=== PATIENT | female | born 1945 | race Caucasian/White ===

== ENCOUNTER 2017-01-17 23:39 | Inpatient (IN) | payer MEDICARE, OTHER ==
[~2017-01-17] VITALS: Ht 160 cm; Wt 75.3 kg
[~2017-01-17 23:39] MED LIST: ACET500C5 PO; AMLO-147 PO; CALC0.2511 PO; CNC30T PO; LORA10TA3 PO; LOSA50TA2 PO; MEVA40 PO; MIRT7.5T8 PO; NEPH PO; NOVO7030 SC; PANT40TA4 PO
[2017-01-18] MEDS ORDERED: SOD CHLORIDE 0.9% 1,000 ML IV STA (01:45)
[2017-01-18] MEDS ORDERED: ONDANSETRON 4 MG INJ IV STA (01:45)
[2017-01-18] MEDS ORDERED: morphine 4 MG/ML VIAL IV STA ×2 (01:45→05:00)
[2017-01-18 02:18] LABS: ADD SCAN DIFF NO
[2017-01-18 02:25] LABS: ABNORMAL IP MESSAGE 1; BASOPHILS % 0.2 % (0.0-2.0); HEMATOCRIT 35.6 % (37.0-47.0); HEMOGLOBIN 11.5 g/dl (12.0-16.0); LYMPHOCYTES # 1.5 10^3/ul (0.8-2.9); MEAN CORPUSCULAR HEMOGLOBIN 30.8 pg (29.0-33.0); MEAN CORPUSCULAR HGB CONC 32.3 g/dl (32.0-37.0); MEAN CORPUSCULAR VOLUME 95.4 fl (82.0-101.0); MEAN PLATELET VOLUME 13.7 fl (7.4-10.4); MONOCYTE # 0.9 10^3/ul (0.3-0.9); MONOCYTES % 5.3 % (0.0-11.0); PLATELET COUNT 199 10^3/UL (140-415); RED BLOOD COUNT 3.73 10^6/ul (4.20-5.40); RED CELL DISTRIBUTION WIDTH 16.2 % (11.5-14.5); WHITE BLOOD COUNT 16.5 10^3/ul (4.8-10.8)
[2017-01-18 02:33] LABS: ADD UMIC YES; UR ASCORBIC ACID NEGATIVE (NEGATIVE); UR BILIRUBIN (Dip) NEGATIVE (NEGATIVE); UR BLOOD (Dip) NEGATIVE (NEGATIVE); UR CLARITY SLIGHTLY CLOUDY (CLEAR); UR COLOR YELLOW (YELLOW); UR GLUCOSE (Dip) 3+ mg/dL (NEGATIVE); UR KETONES (Dip) NEGATIVE (NEGATIVE); UR LEUKOCYTE ESTERASE (Dip) NEGATIVE Leu/ul (NEGATIVE); UR NITRITE (Dip) NEGATIVE (NEGATIVE); UR RBC 0 /HPF (0-5); UR SPECIFIC GRAVITY (Dip) 1.011 (1.003-1.030); UR SQUAMOUS EPITHELIAL CELL FEW /HPF (FEW); UR TOTAL PROTEIN (Dip) 3+ mg/dl (NEGATIVE); UR UROBILINOGEN (Dip) NEGATIVE (NEGATIVE)
[2017-01-18 02:41] LABS: ALBUMIN 5.1 g/dl (3.3-4.9); ALBUMIN/GLOBULIN RATIO 1.45; BILIRUBIN,INDIRECT 0.3 mg/dl (0-1.1); BILIRUBIN,TOTAL 0.3 mg/dl (0.2-1.3); CALCIUM 10.1 mg/dl (8.4-10.2); CREATININE 5.59 mg/dl (0.44-1.00); POTASSIUM 4.5 mmol/L (3.5-5.1); TOTAL PROTEIN 8.6 g/dl (6.1-8.1)
--- NOTE | 2017-01-18 03:32 | RADRPT ---
PROCEDURE: CT abdomen and pelvis without intravenous contrast. CLINICAL INDICATION: Pain. TECHNIQUE: CT of the abdomen/pelvis was performed utilizing axial images with reconstructions in s agittal and coronal planes. The administered radiation dose is CTDI 17 mGy, DLP 1027 mGy-cm. COMPARISON: No pertinent prior examinations were submitted for comparison. FINDINGS: Visualized Chest: There is moderate to marked cardiomegaly. There is trace pericardial effusion. C oronary artery calcifications are noted. There is mild atelectasis in the lung bases. Abdomen: The liver, spleen, pancreas, and adrenal glands are unremarkable. A stone is noted within the gall bladder. There is marked distension of the gallbladder with some gallbladder wall thickening. The kidneys are without hydronephrosis. No definite urinary calculi are seen. There is no evidence of bowel obstruction. The appendix is normal. No intra-abdominal free air is seen. There is no evidence of intra-abdominal adenopathy or free fluid. Vascular calcifications are noted within the aorta and its branches. Pelvis: There is no evidence of pelvic adenopathy. The uterus and ovaries are without enlargement. The uri nary bladder is unremarkable. There is no pelvic free fluid. Osseous structures: Unremarkable. IMPRESSION: Cholelithiasis with gallbladder distension and wall thickening. Findings are suggestive of cholecys titis. RPTAT: HIKT .Damion Liu MD, Date Time Electronically viewed and signed by .Damion Liu MD, on 01/18/2017 03:31 .T/
--- NOTE | 2017-01-18 03:56 | ERD ---
ER Documentation Chief Complaint Date/Time DATE: 01/18/17 TIME: 03:51 Chief Complaint low back pain for 2 days HPI This is a 71-year-old female that presents to the ER with a past medical history of diabetes, hypertension for abdominal pain and lower back pain. Patient states that 2 days ago she began to have lower back pain which radiates into her abdomen. Abdomen is severe and constant and is associated with nausea and nonbilious nonbloody vomiting. Patient denies any diarrhea. Patient also states that abdominal pain radiates down to her left leg. She denies any left leg numbness or tingling. Patient states that yesterday she had a fever, however here in the ER and she does not present with a fever. She denies any urinary frequency or dysuria. Patient is a dialysis patient ROS 12 point review of systems was done, all negative except per HPI. Medications Home Meds Active Scripts Cinacalcet* (Sensipar*) 30 Mg Tab, 30 MG PO DAILY for 30 Days, TAB Prov:PRISCILA HIDALGO NP 03/30/16 Calcitriol* (Calcitriol*) 0.25 Mcg Capsule, 0.25 MCG PO DAILY for 30 Days, CAP Prov:PRISCILA HIDALGO NP 03/30/16 Losartan Potassium* (Cozaar*) 50 Mg Tablet, 50 MG PO BID for 30 Days, TAB Prov:PRISCILA HIDALGO NP 03/30/16 Pantoprazole* (Pantoprazole*) 40 Mg Tablet.dr, 40 MG PO DAILY@06 for 30 Days Prov:PRISCILA HIDALGO NP 03/30/16 Multivit/Ca Carb/B Cmplx/Fa* (Jennifer-Black*) 1 Tab Tab, 1 TAB PO DAILY for 30 Days , TAB Prov:PRISCILA HIDALGO NP 03/30/16 Reported Medications Insulin Isophan/Regular (Humulin 70/30) 100 Units/Ml Susp, 1 UNIT SC HS, EA 03/19/16 Insulin Isophan/Regular (Humulin 70/30) 100 Units/Ml Susp, 1 UNIT SC AC BREAKFAST, EA 03/19/16 Acetaminophen* (Tylophen*) 500 Mg Capsule, 500 MG PO Q6H Y for MODERATE PAIN LEVEL 4-6, TAB 03/19/16 Lovastatin (Lovastatin) 40 Mg Tablet, 40 MG PO HS, TAB 03/19/16 Amlodipine Besylate* (Amlodipine Besylate*) 10 Mg Tablet, 10 MG PO DAILY, #30 TAB 03/19/16 Mirtazapine* (Mirtazapine*) 7.5 Mg Tablet, 7.5 MG PO HS, TAB 03/19/16 Loratadine* (Loratadine*) 10 Mg Tablet, 10 MG PO DAILY, #30 TAB 03/19/16 Allergies Allergies: Coded Allergies: No Known Drug Allergies (Unverified Allergy, Unknown, 03/19/16) PMhx/Soc History of Surgery: Yes (RIGHT FOOT) Anesthesia Reaction: No Hx Neurological Disorder: No Hx Respiratory Disorders: No Hx Cardiac Disorders: Yes (CARDIOMEGALY) Hx Psychiatric Problems: No Hx Miscellaneous Medical Probl: No Hx Alcohol Use: No Hx Substance Use: No Hx Tobacco Use: No Smoking Status: Never smoker Physical Exam Vitals Vital Signs Date Time Temp Pulse Resp B/P Pulse Ox O2 Delivery O2 Flow Rate FiO2 01/17/17 23:48 99.4 87 18 154/70 95 Physical Exam GENERAL: Elderly female in significant distress secondary to pain. HEENT: Atraumatic. Conjunctivae are pink. Pupils equal, round, and reactive to light. Extraocular muscles are grossly intact. Bilateral tympanic membranes are clear with no evidence of erythema, effusion or dulling of the light reflex. The oropharynx is clear with no erythema or exudates. CHEST: Clear to auscultation bilaterally. There are no rales, wheezes or rhonchi. HEART: Regular rate and rhythm. No murmurs, clicks, rubs or gallops. ABDOMEN: Tender to palpation throughout entire abdomen. Good bowel sounds. No rebound or guarding. No gross peritonitis. No gross organomegaly or masses. No Harry sign or McBurney point tenderness. BACK: No midline or flank tenderness. EXTREMITIES: Equal pulses bilaterally. There is no peripheral clubbing, cyanosis or edema. No focal swelling or erythema. Full range of motion. Grossly neurovascularly intact. NEURO: Alert and oriented. SKIN: The skin is warm and dry. Result Diagram: 01/18/17 0200 01/18/17 0200 Results 24 hrs Laboratory Tests Test 01/18/17 02:00 White Blood Count 16.510^3/ul Red Blood Count 3.7310^6/ul Hemoglobin 11.5g/dl Hematocrit 35.6% Mean Corpuscular Volume 95.4fl Mean Corpuscular Hemoglobin 30.8pg Mean Corpuscular Hemoglobin Concent 32.3g/dl Red Cell Distribution Width 16.2% Platelet Count 37435^3/UL Mean Platelet Volume 13.7fl Neutrophils % 85.0% Lymphocytes % 9.0% Monocytes % 5.3% Eosinophils % 0.0% Basophils % 0.2% Nucleated Red Blood Cells % 0.0/100WBC Neutrophils # 14.010^3/ul Lymphocytes # 1.510^3/ul Monocytes # 0.910^3/ul Eosinophils # 0.010^3/ul Basophils # 0.010^3/ul Nucleated Red Blood Cells # 0.010^3/ul Urine Color YELLOW Urine Clarity SLIGHTLY CLOUDY Urine pH 7.0 Urine Specific [place] 1.011 Urine Ketones NEGATIVEmg/dL Urine Nitrite NEGATIVEmg/dL Urine Bilirubin NEGATIVEmg/dL Urine Urobilinogen NEGATIVEmg/dL Urine Leukocyte Esterase NEGATIVELeu/ul Urine Microscopic RBC 0/HPF Urine Microscopic WBC 2/HPF Urine Squamous Epithelial Cells FEW/HPF Urine Hemoglobin NEGATIVEmg/dL Urine Glucose 3+mg/dL Urine Total Protein 3+mg/dl Sodium Level 135mmol/L Potassium Level 4.5mmol/L Chloride Level 91mmol/L Carbon Dioxide Level 26mmol/L Anion Gap 23 Blood Urea Nitrogen 41mg/dl Creatinine 5.59mg/dl Glucose Level 237mg/dl Calcium Level 10.1mg/dl Total Bilirubin 0.3mg/dl Direct Bilirubin 0.00mg/dl Indirect Bilirubin 0.3mg/dl Aspartate Amino Transf (AST/SGOT) 19IU/L Alanine Aminotransferase (ALT/SGPT) 27IU/L Alkaline Phosphatase 92IU/L Total Protein 8.6g/dl Albumin 5.1g/dl Globulin 3.50g/dl Albumin/Globulin Ratio 1.45 Lipase 42U/L Current Medications Medications (Trade) Dose Ordered Sig/Holger Route PRN Reason Start Time Stop Time Status Last Admin Dose Admin Sodium Chloride (NS) 1,000 ml @ 1,000 mls/hr Q1H STAT IV 01/18/17 01:45 01/18/17 02:44 DC 01/18/17 02:08 Morphine Sulfate (morphine) 4 mg ONCE STAT IV 01/18/17 01:45 01/18/17 01:47 DC 01/18/17 02:09 Ondansetron HCl (Zofran Inj) 4 mg ONCE STAT IV 01/18/17 01:45 01/18/17 01:47 DC 01/18/17 02:08 Procedures/MDM Differential Diagnosis: GERD, gastritis, peptic ulcer disease, pancreatitis, cholecystitis, choledocholithiasis, biliary colic, cholangitis, [id number]-Queyhv , ACS/MO, Pnuemonia, intra-abdominal abscess, diverticulitis, mesenteric ischemia, obstruction, appendicitis. This is a 71-year-old female presents to the ER with abdominal pain and back pain. Patient was found to have acute cholecystitis. Patient will be sent to ER 1 for further management care and admission. Departure Diagnosis: Primary Impression: Cholecystitis Condition: JESSICA Ocampo Jan 18, 2017 03:56
[2017-01-18] MEDS ORDERED: PIPER-TAZO 3.375 GM IV (PMX) 100 ML IVPB ONE (05:30)
[2017-01-18] MEDS: SOD CHLORIDE 0.9% 1,000 ML IV SCH ×2 (06:51→10:36)
[2017-01-18] MEDS ORDERED: DEXTROSE 50% 50 ML SYRINGE IV PRN ×2 (07:00)
[2017-01-18] MEDS ORDERED: NACL 0.9% 3 ML SYG IV SCH (07:00)
[2017-01-18] MEDS ORDERED: GLUCOSE GEL 15 GRAM TUBE PO PRN ×2 (07:00)
[2017-01-18] MEDS ORDERED: GLUCAGON 1 MG INJ IM PRN (07:00)
[2017-01-18] MEDS ORDERED: GLUCOSE GEL 15 GRAM TUBE BUCCAL PRN (07:00)
[2017-01-18] MEDS: ONDANSETRON 4 MG INJ IV PRN ×2 (08:19→11:34)
[2017-01-18] MEDS: AMLODIPINE 10 MG TAB PO SCH (08:41)
[2017-01-18] MEDS: LORATADINE 10 MG TAB PO SCH (08:41)
[2017-01-18] MEDS: CINACALCET 30 MG TAB PO SCH (08:42)
[2017-01-18] MEDS: CALCITRIOL 0.25 MCG CAP PO SCH (08:42)
[2017-01-18] MEDS: INSULIN ASPART [NOVOLOG] 3 ML PEN SC SCH ×4 (08:54→21:01)
[2017-01-18] MEDS: HYDROmorphONE 1 MG/ML SYG IV PRN (09:27)
[2017-01-18 10:07] VITALS: Ht 160 cm; Wt 75.3 kg
[2017-01-18 10:08] VITALS: BP 184/84; PULSE 99; RESP 16
[2017-01-18 10:27] VITALS: BP 159/77; RESP 18
[2017-01-18 14:00] VITALS: BP 131/82; RESP 16
[2017-01-18 15:10] LABS: INR 1.12; PROTIME 14.4 Sec (12.2-14.2); PT RATIO 1.1
[2017-01-18 15:11] LABS: PARTIAL THROMBOPLASTIN TIME 38.9 Sec (25.0-35.0)
--- NOTE | 2017-01-18 16:38 | CONS ---
Date/Time of Note Date/Time of Note DATE: 01/18/17 TIME: 16:34 Assessment/Plan Assessment/Plan Chief Complaint/Hosp Course - ESRD on hemodialysis TTS from [facility] [place] - Acute Cholecystitis - Anemia - HTN PLAN: Dialysis in AM IV Abx Pain control Surgical & GI evaluation Problems: Consultation Date/Type/Reason Admit Date/Time Jan 18, 2017 at 04:59 Date of Consultation: Jan 18, 2017 Type of Consultation: NEPHROLOGY Reason for Consultation - ESRD on hemodialysis Hx of Present Illness This is a 71-year-old female that presents to the ER with a past medical history of diabetes, hypertension for abdominal pain and lower back pain. Patient states that 2 days ago she began to have lower back pain which radiates into her abdomen. On hemod[place] [facility] [place] Constitutional: poor po Eyes: no complaints ENT: no complaints Respiratory: no complaints Cardiovascular: no complaints Gastrointestinal: decreased appetite, nausea, pain Genitourinary: no complaints Musculoskeletal: no complaints Past Medical History Medical History: GERD, hypertension, renal disease Past Surgical History Past Surgical Hx: no surgical history Family History Significant Family History: no pertinent family hx Social History Alcohol Use: none Smoking Status: Former smoker Drug Use: none Exam/Review of Systems Vital Signs Vitals Vital Signs Date Time Temp Pulse Resp B/P Pulse Ox O2 Delivery O2 Flow Rate FiO2 01/18/17 14:00 98.5 101 16 131/82 93 01/18/17 10:08 Room Air Exam Constitutional: alert, oriented Psych: no complaints Head: normocephalic Eyes: nl conjunctiva Respiratory: crackles/rales Cardiovascular: edema, regular rate and rhythm, systolic murmur Gastrointestinal: distended, soft, tender Results Result Diagram: 01/18/17 0200 01/18/17 0200 Results 24 hrs Laboratory Tests Test 01/18/17 02:00 01/18/17 08:45 01/18/17 12:03 01/18/17 13:45 White Blood Count 16.5 #H Red Blood Count 3.73 #L Hemoglobin 11.5 #L Hematocrit 35.6 #L Mean Corpuscular Volume 95.4 Mean Corpuscular Hemoglobin 30.8 Mean Corpuscular Hemoglobin Concent 32.3 Red Cell Distribution Width 16.2 H Platelet Count 199 Mean Platelet Volume 13.7 H Neutrophils % 85.0 H Lymphocytes % 9.0 L Monocytes % 5.3 Eosinophils % 0.0 Basophils % 0.2 Nucleated Red Blood Cells % 0.0 Neutrophils # 14.0 H Lymphocytes # 1.5 Monocytes # 0.9 Eosinophils # 0.0 Basophils # 0.0 Nucleated Red Blood Cells # 0.0 Urine Color YELLOW Urine Clarity SLIGHTLY CLOUDY A Urine pH 7.0 Urine Specific [place] 1.011 Urine Ketones NEGATIVE Urine Nitrite NEGATIVE Urine Bilirubin NEGATIVE Urine Urobilinogen NEGATIVE Urine Leukocyte Esterase NEGATIVE Urine Microscopic RBC 0 Urine Microscopic WBC 2 Urine Squamous Epithelial Cells FEW Urine Hemoglobin NEGATIVE Urine Glucose 3+ H Urine Total Protein 3+ H Sodium Level 135 Potassium Level 4.5 Chloride Level 91 L Carbon Dioxide Level 26 Anion Gap 23 H Blood Urea Nitrogen 41 H Creatinine 5.59 H Glucose Level 237 H Calcium Level 10.1 Total Bilirubin 0.3 Direct Bilirubin 0.00 Indirect Bilirubin 0.3 Aspartate Amino Transf (AST/SGOT) 19 Alanine Aminotransferase (ALT/SGPT) 27 Alkaline Phosphatase 92 Total Protein 8.6 H Albumin 5.1 H Globulin 3.50 H Albumin/Globulin Ratio 1.45 Lipase 42 Bedside Glucose 222 H 202 Prothrombin Time 14.4 H Prothrombin Time Ratio 1.1 INR International Normalized Ratio 1.12 Activated Partial Thromboplast Time 38.9 H Troponin I < 0.012 Medications Medications Current Medications Sodium Chloride (NS) 1,000 ml @ 50 mls/hr Q20H IV Last administered on 10:36; Admin Dose 50 MLS/HR; Start 01/18/17 at 06:32 Ondansetron HCl (Zofran Inj) 4 mg Q6H PRN IV NAUSEA AND/OR VOMITING Last administered on 01/18/17 11:34; Admin Dose 4 MG; Start 01/18/17 at 07:00 Hydromorphone HCl (Dilaudid) 0.5 mg Q4H PRN IV SEVERE PAIN LEVEL 7-10 Last administered on 01/18/17 09:27; Admin Dose 0.5 MG; Start 01/18/17 at 07:00 Pantoprazole (Protonix Iv) 40 mg DAILY@06 IV ; Start 01/19/17 at 06:00 Amlodipine Besylate (Norvasc) 10 mg DAILY PO Last administered on 01/18/17 08: 41; Admin Dose 10 MG; Start 01/18/17 at 09:00 Calcitriol (Rocaltrol) 0.25 mcg DAILY PO Last administered on 01/18/17 08:42; Admin Dose 0.25 MCG; Start 01/18/17 at 09:00 Cinacalcet (Sensipar) 30 mg DAILY PO Last administered on 01/18/17 08:42; Admin Dose 30 MG; Start 01/18/17 at 09:00 Loratadine (Claritin) 10 mg DAILY PO Last administered on 01/18/17 08:41; Admin Dose 10 MG; Start 01/18/17 at 09:00 Insulin Aspart (Novolog Insulin Pen) NOVOLOG *MILD* ALGORI... Q4 SC Last administered on 01/18/17 12:31; Admin Dose 2 UNIT; Start 01/18/17 at 09:00 Miscellaneous Information 1 ea NOTE XX ; Start 01/18/17 at 07:00 Glucose (Glutose) 15 gm Q15M PRN PO DECREASED GLUCOSE; Start 01/18/17 at 07:00 Glucose (Glutose) 22.5 gm Q15M PRN PO DECREASED GLUCOSE; Start 01/18/17 at 07: 00 Dextrose (D50w Syringe) 25 ml Q15M PRN IV DECREASED GLUCOSE; Start 01/18/17 at 07:00 Dextrose (D50w Syringe) 50 ml Q15M PRN IV DECREASED GLUCOSE; Start 01/18/17 at 07:00 Glucagon (Glucagen) 1 mg Q15M PRN IM DECREASED GLUCOSE; Start 01/18/17 at 07:00 Glucose (Glutose) 15 gm Q15M PRN BUCCAL DECREASED GLUCOSE; Start 01/18/17 at 07 :00 Insulin Glargine 10 unit 10 unit DAILY@20 SC ; Start 01/18/17 at 20:00 Piperacillin Sod/ Tazobactam Sod (Zosyn 2.25gm/ 50ml (Pmx)) 50 ml @ 100 mls/hr Q8 IVPB ; Start 01/18/17 at 22:00 NILAM DODGE MD Jan 18, 2017 16:37
--- NOTE | 2017-01-18 16:48 | HP ---
Date/Time of Note Date/Time of Note DATE: 01/18/17 TIME: 16:41 Assessment/Plan VTE Prophylaxis VTE Prophylaxis Intervention: SCD's Lines/Catheters IV Catheter Type (from Nrsg): Peripheral IV Assessment/Plan Chief Complaint/Hosp Course Assessment and plan 1. Abdominal pain secondary to acute cholecystitis. Surgeon following. Continue IV hydrationContinue on analgesics as well. Await surgeon input 2. Diabetes. Follow-up on A1c. Insulin regimen place. Will adjust as needed. 3. Essential hypertension. Continue antihypertensives and adjust needed 4. History of dyslipidemia. Follow-up on fasting lipid panel. Patient is mild to moderate risk for surgical intervention for cholecystitis but the benefits of surgery make it reasonable to proceed. Tentative plan for possible laparoscopic cholecystectomy per surgeon Discussed plan of care with Dr. Pacheco Problems: HPI/ROS Admit Date/Time Admit Date/Time Jan 18, 2017 at 04:59 Hx of Present Illness This is a 69-year-old female history of CKD with end-stage renal disease on dialysis on Wednesday and Wednesday, hypertension, anemia chronic disease , acidemia, diabetes, history of right lung nodule and thyroid nodule who did come to [facility] due to reports of 3 days of abdominal pain. Patient did report abdominal pain was more on left upper abdominal quadrant with no radiation. She did have associated nonbilious nonbloody emesis. No diarrhea reported. She also reported having some subjective chills and fevers at home. She subsequently went to [facility]. Upon examination she did have CT scan of her abdomen done on January 18, 2017 did show cholelithiasis within the gallbladder distention and wall thickening suggestive of findings consistent with cholecystitis. Additionally she also had a white count of 16.5. She did have slight mild fever as high as 9 9.5 and was slightly tachycardic with heart rate of 101. Of note patient also have elevated glucose as high as 222 on admission. She did have initial troponin that was negative as well. She was also noted with some sinus tachycardia on EKG. Patient at present denies any chest pain or shortness of breath. She denies any other extensive cardiac history. She does report that her abdominal pain is slightly resolving and does have good control with analgesics at present. We will evaluate her for the aformentiond issues ROS 12 point review of systems obtained and entirely negative except that mentioned in the history of present illness Eyes: no complaints ENT: no complaints Respiratory: no complaints Cardiovascular: no complaints Gastrointestinal: decreased appetite, nausea, pain Genitourinary: no complaints Musculoskeletal: no complaints Psychological: no complaints PMH/Family/Social Past Medical History Medical/surgical history CKD with end-stage renal disease on dialysis on Wednesday and Wednesday, hypertension, anemia chronic disease, acidemia, diabetes, history of right lung nodule and thyroid nodule Medical History: GERD, hypertension, renal disease Past Surgical History Past Surgical Hx: no surgical history Social History Alcohol Use: none Smoking Status: Former smoker Drug Use: none Exam/Review of Systems Vital Signs Vitals Vital Signs Date Time Temp Pulse Resp B/P Pulse Ox O2 Delivery O2 Flow Rate FiO2 01/18/17 14:00 98.5 101 16 131/82 93 01/18/17 10:08 Room Air Exam Constitutional: alert, oriented Head: normocephalic Respiratory: clear to auscultation, normal air movement Cardiovascular: other (Sinus tachycardia) Gastrointestinal: soft, tender (Minimal) Musculoskeletal: nl extremities to inspection Neurological: [employer]CH[employer]IC II-XII intact, nl mental status, nl speech Labs Result Diagram: 01/18/17 0200 01/18/17 0200 Medications Medications Current Medications Sodium Chloride (NS) 1,000 ml @ 50 mls/hr Q20H IV Last administered on 10:36; Admin Dose 50 MLS/HR; Start 01/18/17 at 06:32 Ondansetron HCl (Zofran Inj) 4 mg Q6H PRN IV NAUSEA AND/OR VOMITING Last administered on 01/18/17 11:34; Admin Dose 4 MG; Start 01/18/17 at 07:00 Hydromorphone HCl (Dilaudid) 0.5 mg Q4H PRN IV SEVERE PAIN LEVEL 7-10 Last administered on 01/18/17 09:27; Admin Dose 0.5 MG; Start 01/18/17 at 07:00 Pantoprazole (Protonix Iv) 40 mg DAILY@06 IV ; Start 01/19/17 at 06:00 Amlodipine Besylate (Norvasc) 10 mg DAILY PO Last administered on 01/18/17 08: 41; Admin Dose 10 MG; Start 01/18/17 at 09:00 Calcitriol (Rocaltrol) 0.25 mcg DAILY PO Last administered on 01/18/17 08:42; Admin Dose 0.25 MCG; Start 01/18/17 at 09:00 Cinacalcet (Sensipar) 30 mg DAILY PO Last administered on 01/18/17 08:42; Admin Dose 30 MG; Start 01/18/17 at 09:00 Loratadine (Claritin) 10 mg DAILY PO Last administered on 01/18/17 08:41; Admin Dose 10 MG; Start 01/18/17 at 09:00 Insulin Aspart (Novolog Insulin Pen) NOVOLOG *MILD* ALGORI... Q4 SC Last administered on 01/18/17 12:31; Admin Dose 2 UNIT; Start 01/18/17 at 09:00 Miscellaneous Information 1 ea NOTE XX ; Start 01/18/17 at 07:00 Glucose (Glutose) 15 gm Q15M PRN PO DECREASED GLUCOSE; Start 01/18/17 at 07:00 Glucose (Glutose) 22.5 gm Q15M PRN PO DECREASED GLUCOSE; Start 01/18/17 at 07: 00 Dextrose (D50w Syringe) 25 ml Q15M PRN IV DECREASED GLUCOSE; Start 01/18/17 at 07:00 Dextrose (D50w Syringe) 50 ml Q15M PRN IV DECREASED GLUCOSE; Start 01/18/17 at 07:00 Glucagon (Glucagen) 1 mg Q15M PRN IM DECREASED GLUCOSE; Start 01/18/17 at 07:00 Glucose (Glutose) 15 gm Q15M PRN BUCCAL DECREASED GLUCOSE; Start 01/18/17 at 07 :00 Insulin Glargine 10 unit 10 unit DAILY@20 SC ; Start 01/18/17 at 20:00 Piperacillin Sod/ Tazobactam Sod (Zosyn 2.25gm/ 50ml (Pmx)) 50 ml @ 100 mls/hr Q8 IVPB ; Start 01/18/17 at 22:00 SONJA WRIGHT Jan 18, 2017 16:48
--- NOTE | 2017-01-18 16:56 | CONS ---
DATE OF ADMISSION: 01/18/2017 DATE OF CONSULTATION: 01/18/2017 REASON FOR CONSULTATION: Acute cholecystitis. HISTORY OF PRESENT ILLNESS: The patient is a 71-year-old diabetic female who presents to the emergency room with a 2 day history of back and right abdominal pain. In the emergency room, she was noted to have a tender epigastrium, an elevated white blood cell count and a CT which showed gallstones and gallbladder wall thickening compatible with acute cholecystitis. The patient has had no fevers or chills, but says she has had nausea and vomiting. COMORBIDITIES: Diabetes, history of cardiomegaly and morbid obesity. REVIEW OF SYSTEMS: HEENT: Unremarkable. PULMONARY: No known history of pneumonia. CARDIOVASCULAR: As in the HPI. CARDIOVASCULAR: As in the HPI. EXTREMITIES: Unremarkable. PHYSICAL EXAMINATION: GENERAL APPEARANCE: The patient is a 71-year-old Japanese- speaking female who complains of predominantly upper abdominal and right upper quadrant pain. HEENT: Within normal limits. LUNGS: Clear. HEART: Regular rhythm. ABDOMEN: Tender throughout the epigastrium. EXTREMITIES: Unremarkable. LABORATORY: The patient's hematocrit is 35 with a white count of 16,500 and 85 polys. BUN, glucose and electrolytes significant for glucose of 237. LFTs are normal. Urinalysis 3+ glucosuria. IMPRESSION: This patient has acute cholecystitis. Being a diabetic, this is a surgical urgency. We will medically optimize the patient in anticipation of surgery either later tonight or tomorrow. I have discussed the procedure, indications, alternatives and risks in detail with the patient, who has a reasonable understanding of her situation and agrees to the proposed plan of therapy as outlined. Dictated By: Donnell Alan MD /[email or web address]/ec /Document#: [id number]
[2017-01-18] MEDS ORDERED: BUPIVACAINE 0.25% (MPF) 30 ML INJ ONE (17:51)
[2017-01-18] MEDS ORDERED: PIPER-TAZO 3.375 GM IV (PMX) 100 ML IVPB SCH (18:00)
--- NOTE | 2017-01-18 18:00 | RADRPT ---
Echocardiogram Report Patient Name: JAY SANDOVAL Gender: Female Date: 1945 Study Date: 18-Jan-2017 Embedded Firmware Engineer: Emigdio Giles [facility] Location: [id number] Ref. Physician: SONJA WRIGHT Quality: Adequate Procedures: Transthoracic echocardiogram with complete 2D, M-Mode, and doppler examination. Indications: Pre-op. 2D/M Mode Doppler Measurement Value Normal Ranges Measurement Value Normal Ranges LVIDd 2D 3.7 3.5 - 5.6 cm STANLEY Vmax 1.8 cm2 LVIDs 2D 2.8 2.1 - 4.1 cm STANLEY VTI 1.8 cm2 LVPWd 2D 1.3 0.6 - 1.1 cm AV Mean Darius 1.7 m/sec IVSd 2D 1.3 0.6 - 1.1 cm AV Mean PG 12.8 mmHg AoR Diam 2D 2.5 2.0 - 3.7 cm AV Peak Darius 2.3 m/sec EDV 2D 59.7 cm3 AV Peak PG 20.5 mmHg ESV 2D 22.9 cm3 AV VTI 42.2 cm LA Dimen 2D 4.8 2.3 - 4.0 cm AI Peak PG 15.2 mmHg LVOT Diam 2.2 cm AI Peak Darius 1.9 m/sec AI PHT 325.1 msec LVOT Mean Darius 0.8 m/sec LVOT Mean PG 2.7 mmHg LVOT Peak Darius 1.1 m/sec LVOT Peak PG 5.1 mmHg LVOT VTI 18.7 cm MV E Peak Darius 1.3 m/sec MV A Peak Darius 1.3 m/sec MV E/A 1.0 MV Decel Time 284 msec MV Decel [place] 4 MV E/A 1.0 TR Peak Darius 3.6 m/sec TR Peak PG 51.3 mmHg RVSP 61.3 mmHg Findings Left Ventricle: Normal left ventricular systolic function. Moderate concentric left ventricular hypertrophy. Ejection fraction is visually estimated at 55 %. Abnormal Diastolic Function. Right Ventricle: Normal right ventricular size. Normal right ventricular systolic function. Left Atrium: The left atrium is normal in size. Right Atrium: The right atrium is normal in size. Mitral Valve: Mitral valve leaflets appear mildly thickened. Mild mitral leaflet calcification. Trace mitral regurgitation. Aortic Valve: No significant aortic stenosis or insufficiency. Aortic cusps appear mildly calcified. Trace aortic valve regurgitation. Tricuspid Valve: Normal appearance and function of the tricuspid valve with trace physiologic regurgitation. Estimated peak PA systolic pressure 61 mmHg. Pulmonic Valve: Pulmonic valve not well visualized. Pericardium: Trivial pericardial effusion. Aorta: Normal aortic root. IVC: Normal size and normal respiratory collapse consistent with normal right atrial pressure. Conclusions 1.Normal left ventricular systolic function. Moderate concentric left ventricular hypertrophy. Ejection fraction is visually estimated at 55 %. Abnormal Diastolic Function. 2.Mitral valve leaflets appear mildly thickened. Mild mitral leaflet calcification. Trace mitral regurgitation. 3.No significant aortic stenosis or insufficiency. Aortic cusps appear mildly calcified. Trace aortic valve regurgitation. 4.Normal appearance and function of the tricuspid valve with trace physiologic regurgitation. Estimated peak PA systolic pressure 61 mmHg. 5.Trivial pericardial effusion. Electronically Signed By: Alexi Hendrickson 18-Jan-2017 18:00:16 -0700 Patient Name: JAY SANDOVAL Study Date: 18-Jan-2017 [id number]
[2017-01-18 20:06] VITALS: BP 129/73; RESP 18
[2017-01-18] MEDS: INSULIN GLARGINE [LANtus] 3 ML PEN SC SCH (21:02)
[2017-01-18] MEDS: PIPER-TAZO 2.25 GM (PMX) 50 ML IVPB SCH (21:05)
[2017-01-19] VITALS (12 sets, daily range): BP systolic 118–153; BP diastolic 64–102; PULSE 78–84; RESP 14–23
[2017-01-19] MEDS: INSULIN ASPART [NOVOLOG] 3 ML PEN SC SCH ×7 (01:55→20:42)
[2017-01-19] MEDS ORDERED: ACCU-CHEK XX SCH (02:00)
[2017-01-19] MEDS: DEXTROSE 5%-0.45% NACL 1,000 ML IV SCH ×2 (02:11→16:15)
[2017-01-19] MEDS: PIPER-TAZO 2.25 GM (PMX) 50 ML IVPB SCH ×3 (05:17→21:48)
[2017-01-19] MEDS: PANTOPRAZOLE 40 MG INJ IV SCH (05:17)
[2017-01-19 06:29] LABS: ADD SCAN DIFF NO
[2017-01-19 06:33] LABS: ABNORMAL IP MESSAGE 1; BASOPHILS % 0.2 % (0.0-2.0); HEMOGLOBIN 9.8 g/dl (12.0-16.0); LYMPHOCYTES # 1.1 10^3/ul (0.8-2.9); LYMPHOCYTES % 8.3 % (15.0-51.0); MEAN CORPUSCULAR HGB CONC 31.6 g/dl (32.0-37.0); MEAN CORPUSCULAR VOLUME 94.8 fl (82.0-101.0); MEAN PLATELET VOLUME 13.5 fl (7.4-10.4); MONOCYTE # 1.1 10^3/ul (0.3-0.9); MONOCYTES % 7.7 % (0.0-11.0); NEUTROPHIL # 11.4 10^3/ul (1.6-7.5); NEUTROPHILS % 83.2 % (39.0-77.0); PLATELET COUNT 171 10^3/UL (140-415); RED BLOOD COUNT 3.27 10^6/ul (4.20-5.40); RED CELL DISTRIBUTION WIDTH 15.9 % (11.5-14.5); WHITE BLOOD COUNT 13.6 10^3/ul (4.8-10.8)
[2017-01-19 06:57] LABS: ALBUMIN 3.5 g/dl (3.3-4.9); ALBUMIN/GLOBULIN RATIO 1.16; BILIRUBIN,INDIRECT 0.3 mg/dl (0-1.1); BILIRUBIN,TOTAL 0.3 mg/dl (0.2-1.3); CALCIUM 9.5 mg/dl (8.4-10.2); CHOL/HDL RATIO 3.1 RATIO; CREATININE 6.07 mg/dl (0.44-1.00); MAGNESIUM 1.8 mg/dl (1.7-2.5); TOTAL PROTEIN 6.5 g/dl (6.1-8.1)
[2017-01-19 07:13] LABS: T3 UPTAKE 40.8 % (23.5-40.5)
[2017-01-19 07:27] LABS: THYROID STIMULATING HORMONE 0.771 MIU/L (0.465-4.680)
[2017-01-19] MEDS: LORATADINE 10 MG TAB PO SCH (08:34)
[2017-01-19] MEDS: CINACALCET 30 MG TAB PO SCH (08:34)
[2017-01-19] MEDS: CALCITRIOL 0.25 MCG CAP PO SCH (08:34)
[2017-01-19] MEDS: AMLODIPINE 10 MG TAB PO SCH (08:34)
[2017-01-19] MEDS ORDERED: BUPIVACAINE 0.25% (MPF) 30 ML INJ ONE (09:49)
[2017-01-19] MEDS ORDERED: DEXAMETHASONE 4 MG/ML 1 ML INJ ONE (10:28)
[2017-01-19] MEDS ORDERED: MIDAZOLAM 1 MG/ML 2 ML INJ ONE (10:28)
[2017-01-19] MEDS ORDERED: METOCLOPRAMIDE 10 MG INJ ONE (10:28)
[2017-01-19] MEDS ORDERED: ROCURONIUM 50 MG INJ ONE (10:28)
[2017-01-19] MEDS ORDERED: NEOSTIGMINE 3 MG/3 ML SYRINGE ONE (10:28)
[2017-01-19] MEDS ORDERED: PROPOFOL 20 ML ONE (10:28)
[2017-01-19] MEDS ORDERED: GLYCOPYRROLATE 0.4 MG INJ ONE (10:28)
[2017-01-19] MEDS ORDERED: ROPIVACAINE 0.5 % 30 ML VIAL ONE (11:03)
--- NOTE | 2017-01-19 11:15 | CONS ---
Date/Time of Note Date/Time of Note DATE: 01/19/17 TIME: 11:13 Assessment/Plan Assessment/Plan Chief Complaint/Hosp Course - ESRD [facility] [place] [facility] Acute Cholecystitis - Anemia - HTN PLAN: Going for cholecystectomy today IV Abx Pain control Will evaluate for Need for HD later ( Regualr days are TTS ) Problems: Consultation Date/Type/Reason Admit Date/Time Jan 18, 2017 at 13:20 Initial Consult Date 01/18/17 Type of Consultation: NEPHROLOGY Reason for Consultation - ESRD on hemodialysis 24 HR Interval Summary Constitutional: improved Exam/Review of Systems Vital Signs Vitals Vital Signs Date Time Temp Pulse Resp B/P Pulse Ox O2 Delivery O2 Flow Rate FiO2 01/19/17 07:53 99.7 84 18 133/64 92 01/18/17 10:08 Room Air Intake and Output 01/18/17 01/18/17 01/19/17 15:00 23:00 07:00 Intake Total 250 ml 275 ml Balance 250 ml 275 ml Exam Constitutional: alert, oriented Respiratory: crackles/rales Cardiovascular: edema, systolic murmur Gastrointestinal: soft Results Result Diagram: 01/19/17 0552 01/19/17 0552 Results 24 hrs Laboratory Tests Test 01/18/17 12:03 01/18/17 13:45 01/18/17 17:16 01/18/17 20:57 Bedside Glucose 202 200 187 Prothrombin Time 14.4 H Prothrombin Time Ratio 1.1 INR International Normalized Ratio 1.12 Activated Partial Thromboplast Time 38.9 H Troponin I < 0.012 Test 01/19/17 01:48 01/19/17 05:11 01/19/17 05:52 01/19/17 08:36 Bedside Glucose 164 180 181 White Blood Count 13.6 H Red Blood Count 3.27 L Hemoglobin 9.8 L Hematocrit 31.0 L Mean Corpuscular Volume 94.8 Mean Corpuscular Hemoglobin 30.0 Mean Corpuscular Hemoglobin Concent 31.6 L Red Cell Distribution Width 15.9 H Platelet Count 171 Mean Platelet Volume 13.5 H Neutrophils % 83.2 H Lymphocytes % 8.3 L Monocytes % 7.7 Eosinophils % 0.0 Basophils % 0.2 Nucleated Red Blood Cells % 0.0 Neutrophils # 11.4 H Lymphocytes # 1.1 Monocytes # 1.1 H Eosinophils # 0.0 Basophils # 0.0 Nucleated Red Blood Cells # 0.0 Sodium Level 137 Potassium Level 4.0 Chloride Level 95 L Carbon Dioxide Level 22 Anion Gap 24 H Blood Urea Nitrogen 49 H Creatinine 6.07 H Glucose Level 195 Calcium Level 9.5 Magnesium Level 1.8 Total Bilirubin 0.3 Direct Bilirubin 0.00 Indirect Bilirubin 0.3 Aspartate Amino Transf (AST/SGOT) 20 Alanine Aminotransferase (ALT/SGPT) 22 Alkaline Phosphatase 66 Total Protein 6.5 # Albumin 3.5 # Globulin 3.00 Albumin/Globulin Ratio 1.16 Triglycerides Level 96 Cholesterol Level 150 LDL Cholesterol, Calculated 83 HDL Cholesterol 48 Cholesterol/HDL Ratio 3.1 Thyroid Stimulating Hormone (TSH) 0.771 Free Thyroxine Index 2.90 Thyroxine (T4) 7.1 Triiodothyronine (T3) Uptake 40.8 H Medications Medications Current Medications Ondansetron HCl (Zofran Inj) 4 mg Q6H PRN IV NAUSEA AND/OR VOMITING Last administered on 01/18/17 11:34; Admin Dose 4 MG; Start 01/18/17 at 07:00 Hydromorphone HCl (Dilaudid) 0.5 mg Q4H PRN IV SEVERE PAIN LEVEL 7-10 Last administered on 01/18/17 09:27; Admin Dose 0.5 MG; Start 01/18/17 at 07:00 Pantoprazole (Protonix Iv) 40 mg DAILY@06 IV Last administered on 01/19/17 05: 17; Admin Dose 40 MG; Start 01/19/17 at 06:00 Amlodipine Besylate (Norvasc) 10 mg DAILY PO Last administered on 01/18/17 08: 41; Admin Dose 10 MG; Start 01/18/17 at 09:00 Calcitriol (Rocaltrol) 0.25 mcg DAILY PO Last administered on 01/18/17 08:42; Admin Dose 0.25 MCG; Start 01/18/17 at 09:00 Cinacalcet (Sensipar) 30 mg DAILY PO Last administered on 01/18/17 08:42; Admin Dose 30 MG; Start 01/18/17 at 09:00 Loratadine (Claritin) 10 mg DAILY PO Last administered on 01/18/17 08:41; Admin Dose 10 MG; Start 01/18/17 at 09:00 Insulin Aspart (Novolog Insulin Pen) NOVOLOG *MILD* ALGORI... Q4 SC Last administered on 01/19/17 08:54; Admin Dose 2 UNIT; Start 01/18/17 at 09:00 Miscellaneous Information 1 ea NOTE XX ; Start 01/18/17 at 07:00 Glucose (Glutose) 15 gm Q15M PRN PO DECREASED GLUCOSE; Start 01/18/17 at 07:00 Glucose (Glutose) 22.5 gm Q15M PRN PO DECREASED GLUCOSE; Start 01/18/17 at 07: 00 Dextrose (D50w Syringe) 25 ml Q15M PRN IV DECREASED GLUCOSE; Start 01/18/17 at 07:00 Dextrose (D50w Syringe) 50 ml Q15M PRN IV DECREASED GLUCOSE; Start 01/18/17 at 07:00 Glucagon (Glucagen) 1 mg Q15M PRN IM DECREASED GLUCOSE; Start 01/18/17 at 07:00 Glucose (Glutose) 15 gm Q15M PRN BUCCAL DECREASED GLUCOSE; Start 01/18/17 at 07 :00 Insulin Glargine 10 unit 10 unit DAILY@20 SC Last administered on 01/18/17 21: 02; Admin Dose 10 UNIT; Start 01/18/17 at 20:00 Piperacillin Sod/ Tazobactam Sod 50 ml @ 100 mls/hr Q8 IVPB Last administered on 01/19/17 05:17; Admin Dose 100 MLS/HR; Start 01/18/17 at 22:00 Dextrose/Sodium Chloride (D5-1/2ns) 1,000 ml @ 75 mls/hr [id number] IV Last administered on 01/19/17 02:11; Admin Dose 75 MLS/HR; Start 01/19/17 at 02:30 NILAM DODGE MD Jan 19, 2017 11:15
[2017-01-19] MEDS ORDERED: METOCLOPRAMIDE 10 MG INJ IV PRN (11:30)
[2017-01-19] MEDS ORDERED: hydrALAzine 20 MG INJ IV PRN (11:30)
[2017-01-19] MEDS ORDERED: MEPERIDINE 25 MG INJ IV PRN (11:30)
[2017-01-19] MEDS ORDERED: DIPHENHYDRAMINE 50 MG INJ IV PRN (11:30)
[2017-01-19] MEDS ORDERED: ONDANSETRON 4 MG INJ IV PRN ×2 (11:30→12:00)
[2017-01-19] MEDS ORDERED: HYDROmorphONE (0.2 MG/ML) 10ML SYG IV PRN ×3 (11:30)
[2017-01-19] MEDS ORDERED: FENTAnyl 50 MCG/ML VIAL ONE (11:52)
[2017-01-19] MEDS ORDERED: METOPROLOL 5 MG INJ ONE (11:54)
--- NOTE | 2017-01-19 11:56 | OPR ---
Date/Time of Note Date/Time of Note DATE: 01/19/17 TIME: 11:50 Operative Report Procedure Date: Jan 19, 2017 Preoperative Diagnosis Acute cholecystitis Postoperative Diagnosis Acute cholecystitis Operation Performed 1. Laparoscopic cholecystectomy 2. Placement of drain Surgeon: ZUHAIR VICK MD Anesthesia: general Anesthesiologist: ATUL SANCHEZ MD Estimated Blood Loss: minimal Specimens Gallbladder Grafts/Implants 19. Round Pranay drain Tubes/Drains 19. Round Pranay drain Complications: None Pt Condition Post Procedure: stable Disposition: PACU Indications Symptoms Operative\Procedure Findings After satisfactory general endotracheal anesthesia was achieved, the abdomen was prepped and draped in the usual fashion. The abdomen was insufflated with carbon dioxide through a supraumbilical Veress needle to 15 mmHg pressure. The Veress needle was removed and the umbilical incision extended to 5 mm through which a 5 mm trocar was placed. Laparoscopy showed an acutely inflamed edematous gallbladder. Under direct visualization a 12 mm epigastric trocar was placed as well as two 5 mm right lateral abdominal trochars. The dome of the gallbladder was grasped and retracted superiorly. Omental adhesions were taken off the gallbladder using blunt and sharp dissection enabling Danielle's pouch to be visualized and grasped. It was retracted inferior laterally. The hepatoduodenal ligament was carefully dissected between the gallbladder and the santa hepatis. The cystic duct was then triply hemoclipped and divided high at the junction of the gallbladder and cystic duct. The cystic artery was triply hemoclipped and divided between clips. The gallbladder was then dissected from below a small blood vessel in the liver bed was divided over a clip. The gallbladder was dissected in its entirety with electrocautery and placed intact into an Endo Catch which was removed via the epigastric route. Hemostasis of the liver bed was excellent. Because of the marked amount of edema and inflammation it was elected to place a #19 round Pranay drain. The drain exited through the lateralmost puncture site and was placed below the right hepatic lobe into the gallbladder fossa. The drain was secured to skin with 2-0 nylon. The abdomen was then desufflated after irrigant returned clear, and all trochars were removed. The fascia of the epigastrium was closed with 2 sutures of 0 Vicryl. The skin punctures were infiltrated with 30 cc of 0.25% plain Marcaine and closed with jennifer. Sponge and needle counts were reported as correct 2. ZUHAIR VICK MD Jan 19, 2017 11:55
[2017-01-19] MEDS ORDERED: OXYCODONE/ACETAMINOPHEN (5/325) TAB PO PRN (12:00)
[2017-01-19] MEDS ORDERED: morphine 2 MG INJ IV PRN (12:00)
--- NOTE | 2017-01-19 12:32 | PN ---
Date/Time of Note Date/Time of Note DATE: 01/19/17 TIME: 12:32 Assessment/Plan Lines/Catheters IV Catheter Type (from [facility]): Peripheral IV Exam/Review of Systems Vital Signs Vitals Vital Signs Date Time Temp Pulse Resp B/P Pulse Ox O2 Delivery O2 Flow Rate FiO2 01/19/17 12:10 98.0 01/19/17 07:53 84 18 133/64 92 01/18/17 10:08 Room Air Intake and Output 01/18/17 01/18/17 01/19/17 14:59 22:59 06:59 Intake Total 250 ml 275 ml Balance 250 ml 275 ml Results Result Diagram: 01/19/17 0552 01/19/17 0552 Results 24 hrs Laboratory Tests Test 01/18/17 13:45 01/18/17 17:16 01/18/17 20:57 01/19/17 01:48 Prothrombin Time 14.4 H Prothrombin Time Ratio 1.1 INR International Normalized Ratio 1.12 Activated Partial Thromboplast Time 38.9 H Troponin I < 0.012 Bedside Glucose 200 187 164 Test 01/19/17 05:11 01/19/17 05:52 01/19/17 08:36 01/19/17 12:13 Bedside Glucose 180 181 198 White Blood Count 13.6 H Red Blood Count 3.27 L Hemoglobin 9.8 L Hematocrit 31.0 L Mean Corpuscular Volume 94.8 Mean Corpuscular Hemoglobin 30.0 Mean Corpuscular Hemoglobin Concent 31.6 L Red Cell Distribution Width 15.9 H Platelet Count 171 Mean Platelet Volume 13.5 H Neutrophils % 83.2 H Lymphocytes % 8.3 L Monocytes % 7.7 Eosinophils % 0.0 Basophils % 0.2 Nucleated Red Blood Cells % 0.0 Neutrophils # 11.4 H Lymphocytes # 1.1 Monocytes # 1.1 H Eosinophils # 0.0 Basophils # 0.0 Nucleated Red Blood Cells # 0.0 Sodium Level 137 Potassium Level 4.0 Chloride Level 95 L Carbon Dioxide Level 22 Anion Gap 24 H Blood Urea Nitrogen 49 H Creatinine 6.07 H Glucose Level 195 Calcium Level 9.5 Magnesium Level 1.8 Total Bilirubin 0.3 Direct Bilirubin 0.00 Indirect Bilirubin 0.3 Aspartate Amino Transf (AST/SGOT) 20 Alanine Aminotransferase (ALT/SGPT) 22 Alkaline Phosphatase 66 Total Protein 6.5 # Albumin 3.5 # Globulin 3.00 Albumin/Globulin Ratio 1.16 Triglycerides Level 96 Cholesterol Level 150 LDL Cholesterol, Calculated 83 HDL Cholesterol 48 Cholesterol/HDL Ratio 3.1 Thyroid Stimulating Hormone (TSH) 0.771 Free Thyroxine Index 2.90 Thyroxine (T4) 7.1 Triiodothyronine (T3) Uptake 40.8 H Medications Medications Current Medications Hydromorphone HCl (Dilaudid) 0.5 mg Q4H PRN IV SEVERE PAIN LEVEL 7-10 Last administered on 01/18/17 09:27; Admin Dose 0.5 MG; Start 01/18/17 at 07:00 Pantoprazole (Protonix Iv) 40 mg DAILY@06 IV Last administered on 01/19/17 05: 17; Admin Dose 40 MG; Start 01/19/17 at 06:00 Amlodipine Besylate (Norvasc) 10 mg DAILY PO Last administered on 01/18/17 08: 41; Admin Dose 10 MG; Start 01/18/17 at 09:00 Calcitriol (Rocaltrol) 0.25 mcg DAILY PO Last administered on 01/18/17 08:42; Admin Dose 0.25 MCG; Start 01/18/17 at 09:00 Cinacalcet (Sensipar) 30 mg DAILY PO Last administered on 01/18/17 08:42; Admin Dose 30 MG; Start 01/18/17 at 09:00 Loratadine (Claritin) 10 mg DAILY PO Last administered on 01/18/17 08:41; Admin Dose 10 MG; Start 01/18/17 at 09:00 Insulin Aspart (Novolog Insulin Pen) NOVOLOG *MILD* ALGORI... Q4 SC Last administered on 01/19/17 08:54; Admin Dose 2 UNIT; Start 01/18/17 at 09:00 Miscellaneous Information 1 ea NOTE XX ; Start 01/18/17 at 07:00 Glucose (Glutose) 15 gm Q15M PRN PO DECREASED GLUCOSE; Start 01/18/17 at 07:00 Glucose (Glutose) 22.5 gm Q15M PRN PO DECREASED GLUCOSE; Start 01/18/17 at 07: 00 Dextrose (D50w Syringe) 25 ml Q15M PRN IV DECREASED GLUCOSE; Start 01/18/17 at 07:00 Dextrose (D50w Syringe) 50 ml Q15M PRN IV DECREASED GLUCOSE; Start 01/18/17 at 07:00 Glucagon (Glucagen) 1 mg Q15M PRN IM DECREASED GLUCOSE; Start 01/18/17 at 07:00 Glucose (Glutose) 15 gm Q15M PRN BUCCAL DECREASED GLUCOSE; Start 01/18/17 at 07 :00 Insulin Glargine 10 unit 10 unit DAILY@20 SC Last administered on 01/18/17 21: 02; Admin Dose 10 UNIT; Start 01/18/17 at 20:00 Piperacillin Sod/ Tazobactam Sod 50 ml @ 100 mls/hr Q8 IVPB Last administered on 01/19/17 05:17; Admin Dose 100 MLS/HR; Start 01/18/17 at 22:00 Dextrose/Sodium Chloride (D5-1/2ns) 1,000 ml @ 75 mls/hr [id number] IV Last administered on 01/19/17 02:11; Admin Dose 75 MLS/HR; Start 01/19/17 at 02:30 Oxycodone/ Acetaminophen (Percocet (5/ 325)) 1 tab Q4H PRN PO MILD PAIN (1-3); Start 01/19/17 at 12:00 Oxycodone/ Acetaminophen (Percocet (5/ 325)) 2 tab Q4H PRN PO MODERATE PAIN (4- 6); Start 01/19/17 at 12:00 Morphine Sulfate (morphine) 2 mg ONCE PRN IV SEVERE PAIN LEVEL 7-10; Start at 12:00; Stop 01/20/17 at 11:59 Ondansetron HCl (Zofran Inj) 4 mg Q6H PRN IV NAUSEA; Start 01/19/17 at 12:00 SONJA WRIGHT Jan 19, 2017 12:32
--- NOTE | 2017-01-19 13:44 | PN ---
Date/Time of Note Date/Time of Note DATE: 01/19/17 TIME: 13:41 Assessment/Plan VTE Prophylaxis VTE Prophylaxis Intervention: SCD's Lines/Catheters IV [facility] Type ([facility] Peripheral IV Urinary Cath still in place: No Assessment/Plan Chief Complaint/Hosp Course Assessment and Plan: 1. Abdominal pain secondary to acute cholecystitis. Surgeon following. Continue IV hydration. Continue on analgesics as well. Patient for laparoscopic cholecystectomy. Will follow postop 2. Diabetes. . Insulin regimen place. Will adjust as needed. 3. Essential hypertension. Continue antihypertensives and adjust needed 4. History of dyslipidemia. Stable at present. Provide with low-fat low- cholesterol diet when able to tolerate oral intake Disposition and plan: Patient for tentative laparoscopic cholecystectomy. Will follow postop. Check a.m. labs Discussed plan of care with Dr. Pacheco Problems: Subjective 24 Hr Interval Summary Free Text/Dictation patient for cholecystectomy Exam/Review of Systems Vital Signs Vitals Vital Signs Date Time Temp Pulse Resp B/P Pulse Ox O2 Delivery O2 Flow Rate FiO2 01/19/17 12:42 82 14 133/68 94 Nasal Cannula 01/19/17 12:32 2.0 01/19/17 12:10 98.0 Intake and Output 01/18/17 01/18/17 01/19/17 14:59 22:59 06:59 Intake Total 250 ml 275 ml Balance 250 ml 275 ml Exam patient for procedure Results Result Diagram: 01/19/17 0552 01/19/17 0552 Results 24 hrs Laboratory Tests Test 01/18/17 13:45 01/18/17 17:16 01/18/17 20:57 01/19/17 01:48 Prothrombin Time 14.4 H Prothrombin Time Ratio 1.1 INR International Normalized Ratio 1.12 Activated Partial Thromboplast Time 38.9 H Troponin I < 0.012 Bedside Glucose 200 187 164 Test 01/19/17 05:11 01/19/17 05:52 01/19/17 08:36 01/19/17 12:13 Bedside Glucose 180 181 198 White Blood Count 13.6 H Red Blood Count 3.27 L Hemoglobin 9.8 L Hematocrit 31.0 L Mean Corpuscular Volume 94.8 Mean Corpuscular Hemoglobin 30.0 Mean Corpuscular Hemoglobin Concent 31.6 L Red Cell Distribution Width 15.9 H Platelet Count 171 Mean Platelet Volume 13.5 H Neutrophils % 83.2 H Lymphocytes % 8.3 L Monocytes % 7.7 Eosinophils % 0.0 Basophils % 0.2 Nucleated Red Blood Cells % 0.0 Neutrophils # 11.4 H Lymphocytes # 1.1 Monocytes # 1.1 H Eosinophils # 0.0 Basophils # 0.0 Nucleated Red Blood Cells # 0.0 Sodium Level 137 Potassium Level 4.0 Chloride Level 95 L Carbon Dioxide Level 22 Anion Gap 24 H Blood Urea Nitrogen 49 H Creatinine 6.07 H Glucose Level 195 Calcium Level 9.5 Magnesium Level 1.8 Total Bilirubin 0.3 Direct Bilirubin 0.00 Indirect Bilirubin 0.3 Aspartate Amino Transf (AST/SGOT) 20 Alanine Aminotransferase (ALT/SGPT) 22 Alkaline Phosphatase 66 Total Protein 6.5 # Albumin 3.5 # Globulin 3.00 Albumin/Globulin Ratio 1.16 Triglycerides Level 96 Cholesterol Level 150 LDL Cholesterol, Calculated 83 HDL Cholesterol 48 Cholesterol/HDL Ratio 3.1 Thyroid Stimulating Hormone (TSH) 0.771 Free Thyroxine Index 2.90 Thyroxine (T4) 7.1 Triiodothyronine (T3) Uptake 40.8 H Medications Medications Current Medications Hydromorphone HCl (Dilaudid) 0.5 mg Q4H PRN IV SEVERE PAIN LEVEL 7-10 Last administered on 01/18/17 09:27; Admin Dose 0.5 MG; Start 01/18/17 at 07:00 Pantoprazole (Protonix Iv) 40 mg DAILY@06 IV Last administered on 01/19/17 05: 17; Admin Dose 40 MG; Start 01/19/17 at 06:00 Amlodipine Besylate (Norvasc) 10 mg DAILY PO Last administered on 01/18/17 08: 41; Admin Dose 10 MG; Start 01/18/17 at 09:00 Calcitriol (Rocaltrol) 0.25 mcg DAILY PO Last administered on 01/18/17 08:42; Admin Dose 0.25 MCG; Start 01/18/17 at 09:00 Cinacalcet (Sensipar) 30 mg DAILY PO Last administered on 01/18/17 08:42; Admin Dose 30 MG; Start 01/18/17 at 09:00 Loratadine (Claritin) 10 mg DAILY PO Last administered on 01/18/17 08:41; Admin Dose 10 MG; Start 01/18/17 at 09:00 Insulin Aspart (Novolog Insulin Pen) NOVOLOG *MILD* ALGORI... Q4 SC Last administered on 01/19/17 08:54; Admin Dose 2 UNIT; Start 01/18/17 at 09:00 Miscellaneous Information 1 ea NOTE XX ; Start 01/18/17 at 07:00 Glucose (Glutose) 15 gm Q15M PRN PO DECREASED GLUCOSE; Start 01/18/17 at 07:00 Glucose (Glutose) 22.5 gm Q15M PRN PO DECREASED GLUCOSE; Start 01/18/17 at 07: 00 Dextrose (D50w Syringe) 25 ml Q15M PRN IV DECREASED GLUCOSE; Start 01/18/17 at 07:00 Dextrose (D50w Syringe) 50 ml Q15M PRN IV DECREASED GLUCOSE; Start 01/18/17 at 07:00 Glucagon (Glucagen) 1 mg Q15M PRN IM DECREASED GLUCOSE; Start 01/18/17 at 07:00 Glucose (Glutose) 15 gm Q15M PRN BUCCAL DECREASED GLUCOSE; Start 01/18/17 at 07 :00 Insulin Glargine 10 unit 10 unit DAILY@20 SC Last administered on 01/18/17 21: 02; Admin Dose 10 UNIT; Start 01/18/17 at 20:00 Piperacillin Sod/ Tazobactam Sod 50 ml @ 100 mls/hr Q8 IVPB Last administered on 01/19/17 05:17; Admin Dose 100 MLS/HR; Start 01/18/17 at 22:00 Dextrose/Sodium Chloride (D5-1/2ns) 1,000 ml @ 75 mls/hr [id number] IV Last administered on 01/19/17 02:11; Admin Dose 75 MLS/HR; Start 01/19/17 at 02:30 Oxycodone/ Acetaminophen (Percocet (5/ 325)) 1 tab Q4H PRN PO MILD PAIN (1-3); Start 01/19/17 at 12:00 Oxycodone/ Acetaminophen (Percocet (5/ 325)) 2 tab Q4H PRN PO MODERATE PAIN (4- 6); Start 01/19/17 at 12:00 Morphine Sulfate (morphine) 2 mg ONCE PRN IV SEVERE PAIN LEVEL 7-10; Start at 12:00; Stop 01/20/17 at 11:59 Ondansetron HCl (Zofran Inj) 4 mg Q6H PRN IV NAUSEA; Start 01/19/17 at 12:00 SONJA WRIGHT Jan 19, 2017 13:44
--- NOTE | 2017-01-19 17:35 | RADRPT ---
Vent Rate: 104 bpm RR Interval: 0 msec ME Interval: 190 msec QRS Duration: 80 msec QT Interval: 354 msec QTC Interval: 465 msec P-R-T Cooter: 77 - -4 - 69 degrees Sinus tachycardia with premature atrial complexes with aberrant conduction Otherwise normal ECG Electronically Signed By: Miguel Breaux [id number]
[2017-01-19] MEDS ORDERED: ACETAMINOPHEN 325 MG TAB PO PRN (20:30)
[2017-01-19] MEDS: OXYCODONE/ACETAMINOPHEN (5/325) TAB PO PRN (20:39)
[2017-01-19] MEDS: INSULIN GLARGINE [LANtus] 3 ML PEN SC SCH (20:42)
[2017-01-20] VITALS (11 sets, daily range): BP systolic 115–158; BP diastolic 51–73; PULSE 76–79; RESP 18–20
[2017-01-20] MEDS: ACCU-CHEK XX SCH (02:00)
[2017-01-20] MEDS: DEXTROSE 5%-0.45% NACL 1,000 ML IV SCH (05:10)
[2017-01-20] MEDS: PIPER-TAZO 2.25 GM (PMX) 50 ML IVPB SCH ×2 (05:44→15:05)
[2017-01-20] MEDS: PANTOPRAZOLE 40 MG INJ IV SCH (05:44)
[2017-01-20 06:28] LABS: ADD SCAN DIFF NO
[2017-01-20 06:29] LABS: ABNORMAL IP MESSAGE 1; BASOPHILS % 0.2 % (0.0-2.0); HEMOGLOBIN 9.4 g/dl (12.0-16.0); LYMPHOCYTES % 7.7 % (15.0-51.0); MEAN CORPUSCULAR HEMOGLOBIN 30.2 pg (29.0-33.0); MEAN CORPUSCULAR HGB CONC 32.4 g/dl (32.0-37.0); MEAN CORPUSCULAR VOLUME 93.2 fl (82.0-101.0); MEAN PLATELET VOLUME 13.8 fl (7.4-10.4); MONOCYTE # 0.7 10^3/ul (0.3-0.9); MONOCYTES % 5.6 % (0.0-11.0); NEUTROPHIL # 10.7 10^3/ul (1.6-7.5); NEUTROPHILS % 86.1 % (39.0-77.0); PLATELET COUNT 168 10^3/UL (140-415); RED BLOOD COUNT 3.11 10^6/ul (4.20-5.40); RED CELL DISTRIBUTION WIDTH 15.9 % (11.5-14.5); WHITE BLOOD COUNT 12.4 10^3/ul (4.8-10.8)
[2017-01-20 07:16] LABS: ALBUMIN/GLOBULIN RATIO 1.02
[2017-01-20 07:27] LABS: ALBUMIN 3.5 g/dl (3.3-4.9); BILIRUBIN,INDIRECT 0.1 mg/dl (0-1.1); BILIRUBIN,TOTAL 0.1 mg/dl (0.2-1.3); CALCIUM 9.7 mg/dl (8.4-10.2); CREATININE 7.37 mg/dl (0.44-1.00); POTASSIUM 3.9 mmol/L (3.5-5.1); TOTAL PROTEIN 6.9 g/dl (6.1-8.1)
[2017-01-20] MEDS: INSULIN ASPART [NOVOLOG] 3 ML PEN SC SCH ×4 (08:09→21:16)
[2017-01-20] MEDS: LORATADINE 10 MG TAB PO SCH (09:03)
[2017-01-20] MEDS: CINACALCET 30 MG TAB PO SCH (09:03)
[2017-01-20] MEDS: HYDROmorphONE 1 MG/ML SYG IV PRN (09:03)
[2017-01-20] MEDS: AMLODIPINE 10 MG TAB PO SCH (09:03)
[2017-01-20] MEDS: CALCITRIOL 0.25 MCG CAP PO SCH (09:03)
--- NOTE | 2017-01-20 16:02 | PN ---
Date/Time of Note Date/Time of Note DATE: 01/20/17 TIME: 15:59 Assessment/Plan VTE Prophylaxis VTE Prophylaxis Intervention: SCD's Lines/Catheters IV Catheter Type (from [facility]): Peripheral IV Urinary Cath still in place: No Assessment/Plan Chief Complaint/Hosp Course Assessment and Plan: 1. Abdominal pain secondary to acute cholecystitis. Advance diet as tolerated. Continue with analgesics. 2. Diabetes. . Continue with insulin regimen 3. Essential hypertension. Continue antihypertensives and adjust needed 4. History of dyslipidemia. Stable at present. Provide with low-fat low- cholesterol diet when able to tolerate oral intake 5. MRSA UTI. ABX per ID. ID peoplesoft consultant consulted Disposition and plan: ID consult to follow. Continue antibiotics. Will follow up with recommendation Discussed plan of care with Dr. Pacheco Problems: Subjective 24 Hr Interval Summary Free Text/Dictation Still reports having some abdominal discomfort but less today. Exam/Review of Systems Vital Signs Vitals Vital Signs Date Time Temp Pulse Resp B/P Pulse Ox O2 Delivery O2 Flow Rate FiO2 01/20/17 12:38 Nasal Cannula 2.0 01/20/17 07:35 75 18 153/73 01/20/17 02:24 97.8 94 Intake and Output 01/19/17 01/19/17 01/20/17 14:59 22:59 06:59 Intake Total 50 ml 1090 ml 1190 ml Output Total 50 ml 40 ml Balance 0 ml 1050 ml 1190 ml Exam Constitutional: alert, oriented Psych: no complaints Respiratory: clear to auscultation, normal air movement Gastrointestinal: soft, tender Musculoskeletal: nl extremities to inspection Neurological: [employer] II-XII intact, nl mental status, nl speech Skin: other (Surgical site CDI) Results Result Diagram: 01/20/17 0553 01/20/17 0553 Results 24 hrs Laboratory Tests Test 01/19/17 16:17 01/19/17 17:43 01/19/17 20:34 01/20/17 02:06 Bedside Glucose 203 259 H 233 H 179 Test 01/20/17 05:53 01/20/17 08:07 01/20/17 12:09 White Blood Count 12.4 H Red Blood Count 3.11 L Hemoglobin 9.4 L Hematocrit 29.0 L Mean Corpuscular Volume 93.2 Mean Corpuscular Hemoglobin 30.2 Mean Corpuscular Hemoglobin Concent 32.4 Red Cell Distribution Width 15.9 H Platelet Count 168 Mean Platelet Volume 13.8 H Neutrophils % 86.1 H Lymphocytes % 7.7 L Monocytes % 5.6 Eosinophils % 0.0 Basophils % 0.2 Nucleated Red Blood Cells % 0.0 Neutrophils # 10.7 H Lymphocytes # 1.0 Monocytes # 0.7 Eosinophils # 0.0 Basophils # 0.0 Nucleated Red Blood Cells # 0.0 Sodium Level 135 Potassium Level 3.9 Chloride Level 93 L Carbon Dioxide Level 22 Anion Gap 24 H Blood Urea Nitrogen 58 H Creatinine 7.37 H Glucose Level 189 Hemoglobin A1c 7.1 H Calcium Level 9.7 Total Bilirubin 0.1 L Direct Bilirubin 0.00 Indirect Bilirubin 0.1 Aspartate Amino Transf (AST/SGOT) 28 Alanine Aminotransferase (ALT/SGPT) 28 Alkaline Phosphatase 65 Total Protein 6.9 Albumin 3.5 Globulin 3.40 H Albumin/Globulin Ratio 1.02 Bedside Glucose 185 269 H Medications Medications Current Medications Hydromorphone HCl (Dilaudid) 0.5 mg Q4H PRN IV SEVERE PAIN LEVEL 7-10 Last administered on 01/20/17 09:03; Admin Dose 0.5 MG; Start 01/18/17 at 07:00 Pantoprazole (Protonix Iv) 40 mg DAILY@06 IV Last administered on 01/20/17 05: 44; Admin Dose 40 MG; Start 01/19/17 at 06:00 Amlodipine Besylate (Norvasc) 10 mg DAILY PO Last administered on 01/20/17 09: 03; Admin Dose 10 MG; Start 01/18/17 at 09:00 Calcitriol (Rocaltrol) 0.25 mcg DAILY PO Last administered on 01/20/17 09:03; Admin Dose 0.25 MCG; Start 01/18/17 at 09:00 Cinacalcet (Sensipar) 30 mg DAILY PO Last administered on 01/20/17 09:03; Admin Dose 30 MG; Start 01/18/17 at 09:00 Loratadine (Claritin) 10 mg DAILY PO Last administered on 01/20/17 09:03; Admin Dose 10 MG; Start 01/18/17 at 09:00 Miscellaneous Information 1 ea NOTE XX ; Start 01/18/17 at 07:00 Glucose (Glutose) 15 gm Q15M PRN PO DECREASED GLUCOSE; Start 01/18/17 at 07:00 Glucose (Glutose) 22.5 gm Q15M PRN PO DECREASED GLUCOSE; Start 01/18/17 at 07: 00 Dextrose (D50w Syringe) 25 ml Q15M PRN IV DECREASED GLUCOSE; Start 01/18/17 at 07:00 Dextrose (D50w Syringe) 50 ml Q15M PRN IV DECREASED GLUCOSE; Start 01/18/17 at 07:00 Glucagon (Glucagen) 1 mg Q15M PRN IM DECREASED GLUCOSE; Start 01/18/17 at 07:00 Glucose 15 gm 15 gm Q15M PRN BUCCAL DECREASED GLUCOSE; Start 01/18/17 at 07:00 Piperacillin Sod/ Tazobactam Sod (Zosyn 2.25gm/ 50ml (Pmx)) 50 ml @ 100 mls/hr Q8 IVPB Last administered on 01/20/17 15:05; Admin Dose 100 MLS/HR; Start at 22:00 Oxycodone/ Acetaminophen (Percocet (5/ 325)) 1 tab Q4H PRN PO MILD PAIN (1-3); Start 01/19/17 at 12:00 Oxycodone/ Acetaminophen (Percocet (5/ 325)) 2 tab Q4H PRN PO MODERATE PAIN (4- 6) Last administered on 01/19/17 20:39; Admin Dose 2 TAB; Start 01/19/17 at 12: 00 Ondansetron HCl (Zofran Inj) 4 mg Q6H PRN IV NAUSEA; Start 01/19/17 at 12:00 Diagnostic Test (Pha) (Accu-Chek) 1 ea 02 XX ; Start 01/20/17 at 02:00 Miscellaneous Information Patients own medicat... BID@10,16 XX ; Start 01/20/17 at 10:00 Acetaminophen (Tylenol Tab) 650 mg Q6H PRN PO PAIN AND OR ELEVATED TEMP; Start 01/19/17 at 20:30 Insulin Glargine (Lantus) 14 unit DAILY@20 SC ; Start 01/20/17 at 20:00 SONJA WRIGHT Jan 20, 2017 16:02
[2017-01-20] MEDS ORDERED: VANCOMYCIN 1.25 GM in SOD CHLORIDE 0.9% 250 ML IVPB ONE (17:30)
--- NOTE | 2017-01-20 17:37 | CONS ---
Date/Time of Note Date/Time of Note DATE: 01/20/17 TIME: 17:36 Consultation Date/Type/Reason Admit Date/Time Jan 18, 2017 at 13:20 Type of Consultation: ID Reason for Consultation This is Dr. Rodolfo Jimenez dictating infectious consult on Acacia Gayle, date of admission 716 date of consultation and dictation 01/20/2017, reason for consultation is antibiotic management. Patient is a 69-year-old female with numerous problems who comes in with abdominal pain secondary to acute cholecystitis . Past problems include: #1 chronic renal disease on hemodialysis #2 right upper extremity AV fistula #3 hypertension #4 anemia of chronic disease #5 adult onset diabetes mellitus #6 right lung nodule and thyroid nodule. Patient came to [facility] with a history of 3 days of abdominal pain with associated nonbilious nonbloody emesis; she had subjective chills and fever at home a CT scan of the abdomen showed cholelithiasis with gallbladder distention and gallbladder wall thickening suggestive of cholecystitis. Her white count was 16.5 H&H of 11.5 and 35.6 platelet count 199,000. BUN/ creatinine 41/5.59 glucose 237. Patient was started on Zosyn Hospital course: Patient underwent laparoscopic cholecystectomy by Dr. Donnell Alan for acute cholecystitis. He placed a drain in the gallbladder bed. White count today is 12.4 clean-catch urine shows methicillin-resistant staph aureus and mixed gram-positive organisms Past medical history is as outlined Past surgical history as outlined Family history is noncontributory Social history: She is a former smoker, she does not drink or abuse drugs. Allergies: None to penicillin sulfa foods Medications per chart Review of systems is noncontributory On physical exam patient is a well-developed somewhat obese female who is awake responsive in no acute distress status post surgery. SHEENT within normal limits Neck is supple, lymph nodes nonpalpable Chest is clear to P&A with decreased breath sounds at the bases. Heart without murmur gallop Abdomen is somewhat tender, distended with bloody drain in place. Extremities: Without cyanosis clubbing or edema. Rectal genital exams deferred, no Botello catheter. Neurological evaluation: No focal neurological abnormalities. Impression/plan: Patient is a 71-year-old female status post cholecystectomy, currently on Zosyn. She has MRSA in her urine and is on hemodialysis. We will therefore give her 1 dose of vancomycin to eradicate the MRSA. I will dictate my findings to Dr. Alan and the hospitalists. Thank you for this assistant accounting manager. Constitutional: poor po Eyes: no complaints ENT: no complaints Respiratory: no complaints Cardiovascular: no complaints Gastrointestinal: decreased appetite, nausea, pain Genitourinary: no complaints Musculoskeletal: no complaints Psychological: no complaints Past Medical History Medical History: GERD, hypertension, renal disease Past Surgical History Past Surgical Hx: no surgical history Social History Alcohol Use: none Smoking Status: Former smoker Drug Use: none Exam/Review of Systems Vital Signs Vitals Vital Signs Date Time Temp Pulse Resp B/P Pulse Ox O2 Delivery O2 Flow Rate FiO2 01/20/17 14:20 98.4 91 18 158/71 90 01/20/17 12:38 Nasal Cannula 2.0 Intake and Output 01/19/17 01/19/17 01/20/17 15:00 23:00 07:00 Intake Total 50 ml 1090 ml 1690 ml Output Total 50 ml 40 ml 2500 ml Balance 0 ml 1050 ml -810 ml Results Result Diagram: 01/20/17 0553 01/20/17 0553 Results 24 hrs Laboratory Tests Test 01/19/17 17:43 01/19/17 20:34 01/20/17 02:06 01/20/17 05:53 Bedside Glucose 259 H 233 H 179 White Blood Count 12.4 H Red Blood Count 3.11 L Hemoglobin 9.4 L Hematocrit 29.0 L Mean Corpuscular Volume 93.2 Mean Corpuscular Hemoglobin 30.2 Mean Corpuscular Hemoglobin Concent 32.4 Red Cell Distribution Width 15.9 H Platelet Count 168 Mean Platelet Volume 13.8 H Neutrophils % 86.1 H Lymphocytes % 7.7 L Monocytes % 5.6 Eosinophils % 0.0 Basophils % 0.2 Nucleated Red Blood Cells % 0.0 Neutrophils # 10.7 H Lymphocytes # 1.0 Monocytes # 0.7 Eosinophils # 0.0 Basophils # 0.0 Nucleated Red Blood Cells # 0.0 Sodium Level 135 Potassium Level 3.9 Chloride Level 93 L Carbon Dioxide Level 22 Anion Gap 24 H Blood Urea Nitrogen 58 H Creatinine 7.37 H Glucose Level 189 Hemoglobin A1c 7.1 H Calcium Level 9.7 Total Bilirubin 0.1 L Direct Bilirubin 0.00 Indirect Bilirubin 0.1 Aspartate Amino Transf (AST/SGOT) 28 Alanine Aminotransferase (ALT/SGPT) 28 Alkaline Phosphatase 65 Total Protein 6.9 Albumin 3.5 Globulin 3.40 H Albumin/Globulin Ratio 1.02 Test 01/20/17 08:07 01/20/17 12:09 Bedside Glucose 185 269 H Medications Medications Current Medications Hydromorphone HCl (Dilaudid) 0.5 mg Q4H PRN IV SEVERE PAIN LEVEL 7-10 Last administered on 01/20/17 09:03; Admin Dose 0.5 MG; Start 01/18/17 at 07:00 Pantoprazole (Protonix Iv) 40 mg DAILY@06 IV Last administered on 01/20/17 05: 44; Admin Dose 40 MG; Start 01/19/17 at 06:00 Amlodipine Besylate (Norvasc) 10 mg DAILY PO Last administered on 01/20/17 09: 03; Admin Dose 10 MG; Start 01/18/17 at 09:00 Calcitriol (Rocaltrol) 0.25 mcg DAILY PO Last administered on 01/20/17 09:03; Admin Dose 0.25 MCG; Start 01/18/17 at 09:00 Cinacalcet (Sensipar) 30 mg DAILY PO Last administered on 01/20/17 09:03; Admin Dose 30 MG; Start 01/18/17 at 09:00 Loratadine (Claritin) 10 mg DAILY PO Last administered on 01/20/17 09:03; Admin Dose 10 MG; Start 01/18/17 at 09:00 Miscellaneous Information 1 ea NOTE XX ; Start 01/18/17 at 07:00 Glucose (Glutose) 15 gm Q15M PRN PO DECREASED GLUCOSE; Start 01/18/17 at 07:00 Glucose (Glutose) 22.5 gm Q15M PRN PO DECREASED GLUCOSE; Start 01/18/17 at 07: 00 Dextrose (D50w Syringe) 25 ml Q15M PRN IV DECREASED GLUCOSE; Start 01/18/17 at 07:00 Dextrose (D50w Syringe) 50 ml Q15M PRN IV DECREASED GLUCOSE; Start 01/18/17 at 07:00 Glucagon (Glucagen) 1 mg Q15M PRN IM DECREASED GLUCOSE; Start 01/18/17 at 07:00 Glucose 15 gm 15 gm Q15M PRN BUCCAL DECREASED GLUCOSE; Start 01/18/17 at 07:00 Piperacillin Sod/ Tazobactam Sod (Zosyn 2.25gm/ 50ml (Pmx)) 50 ml @ 100 mls/hr Q8 IVPB Last administered on 01/20/17 15:05; Admin Dose 100 MLS/HR; Start at 22:00 Oxycodone/ Acetaminophen (Percocet (5/ 325)) 1 tab Q4H PRN PO MILD PAIN (1-3); Start 01/19/17 at 12:00 Oxycodone/ Acetaminophen (Percocet (5/ 325)) 2 tab Q4H PRN PO MODERATE PAIN (4- 6) Last administered on 01/19/17 20:39; Admin Dose 2 TAB; Start 01/19/17 at 12: 00 Ondansetron HCl (Zofran Inj) 4 mg Q6H PRN IV NAUSEA; Start 01/19/17 at 12:00 Diagnostic Test (Pha) (Accu-Chek) 1 ea 02 XX ; Start 01/20/17 at 02:00 Miscellaneous Information Patients own medicat... BID@10,16 XX ; Start 01/20/17 at 10:00 Acetaminophen (Tylenol Tab) 650 mg Q6H PRN PO PAIN AND OR ELEVATED TEMP; Start 01/19/17 at 20:30 Insulin Glargine (Lantus) 14 unit DAILY@20 SC ; Start 01/20/17 at 20:00 RODOLFO JIMENEZ MD Jan 20, 2017 17:37
[2017-01-20] MEDS: INSULIN GLARGINE [LANtus] 3 ML PEN SC SCH (21:18)
[2017-01-20] MEDS ORDERED: LEVOFLOXACIN 500 MG TAB PO SCH (22:19)
[2017-01-21] VITALS (14 sets, daily range): BP systolic 110–165; BP diastolic 52–79; PULSE 71–80; RESP 18–21
[2017-01-21] MEDS: ACCU-CHEK XX SCH (02:00)
[2017-01-21] MEDS: OXYCODONE/ACETAMINOPHEN (5/325) TAB PO PRN ×2 (04:45→15:07)
[2017-01-21 04:53] LABS: ADD SCAN DIFF NO
[2017-01-21 04:54] LABS: ABNORMAL IP MESSAGE 1; BASOPHILS % 0.3 % (0.0-2.0); EOSINOPHILS # 0.1 10^3/ul (0.0-0.5); EOSINOPHILS % 0.6 % (0.0-7.0); HEMATOCRIT 28.1 % (37.0-47.0); HEMOGLOBIN 9.1 g/dl (12.0-16.0); LYMPHOCYTES # 0.9 10^3/ul (0.8-2.9); LYMPHOCYTES % 8.2 % (15.0-51.0); MEAN CORPUSCULAR HEMOGLOBIN 30.2 pg (29.0-33.0); MEAN CORPUSCULAR HGB CONC 32.4 g/dl (32.0-37.0); MEAN CORPUSCULAR VOLUME 93.4 fl (82.0-101.0); MEAN PLATELET VOLUME 13.2 fl (7.4-10.4); MONOCYTE # 0.8 10^3/ul (0.3-0.9); MONOCYTES % 7.4 % (0.0-11.0); NEUTROPHIL # 9.1 10^3/ul (1.6-7.5); PLATELET COUNT 164 10^3/UL (140-415); RED BLOOD COUNT 3.01 10^6/ul (4.20-5.40); RED CELL DISTRIBUTION WIDTH 15.8 % (11.5-14.5); WHITE BLOOD COUNT 10.9 10^3/ul (4.8-10.8)
[2017-01-21 05:16] LABS: CALCIUM 8.6 mg/dl (8.4-10.2); CREATININE 5.95 mg/dl (0.44-1.00); POTASSIUM 3.8 mmol/L (3.5-5.1)
[2017-01-21] MEDS: PANTOPRAZOLE 40 MG INJ IV SCH (05:19)
--- NOTE | 2017-01-21 07:27 | PN ---
Date/Time of Note Date/Time of Note DATE: 01/21/17 TIME: 07:26 Assessment/Plan Lines/Catheters IV Catheter Type (from Nrsg): Peripheral IV Botello in Place (from Nrsg): No Assessment/Plan Assessment/Plan Excellent recovery I removed the PRATIK drain Plan: Patient cleared for discharge home today with office follow-up in 1 week Subjective 24 Hr Interval Summary Postoperative day #2 Patient remains markedly improved. Leukocytosis resolved Exam/Review of Systems Vital Signs Vitals Vital Signs Date Time Temp Pulse Resp B/P Pulse Ox O2 Delivery O2 Flow Rate FiO2 01/21/17 06:12 76 158/68 01/21/17 02:21 98.9 21 90 01/20/17 20:00 Nasal Cannula 2.0 Intake and Output 01/20/17 01/20/17 01/21/17 15:00 23:00 07:00 Intake Total 100 ml 535 ml 240 ml Output Total 24 ml Balance 100 ml 535 ml 216 ml Results Result Diagram: 01/21/17 0440 01/21/17 0440 ZUHAIR VICK MD Jan 21, 2017 07:27
[2017-01-21] MEDS: CALCITRIOL 0.25 MCG CAP PO SCH (08:13)
[2017-01-21] MEDS: LORATADINE 10 MG TAB PO SCH (08:14)
[2017-01-21] MEDS: AMLODIPINE 10 MG TAB PO SCH (08:14)
[2017-01-21] MEDS: CINACALCET 30 MG TAB PO SCH (08:14)
[2017-01-21] MEDS: INSULIN ASPART [NOVOLOG] 3 ML PEN SC SCH ×4 (08:17→20:45)
[2017-01-21] MEDS ORDERED: CEPH500C PO (14:14)
[2017-01-21] MEDS ORDERED: Oxycodone/Acetamin (5/325) PO (14:14)
--- NOTE | 2017-01-21 14:36 | PDOCDIS ---
Discharge Instructions DIAGNOSIS Discharge Diagnosis 1. Abdominal pain secondary to cholecystitis 2. Diabetes 3. Essential hypertension 4. Dyslipidemia 5. Reported UTI with MRSA CONDITION Patient Condition: Stable HOME CARE INSTRUCTIONS: Special Diet: CARB CONTROL FOLLOW UP/APPOINTMENTS Follow-up Plan 1. Follow up with Dr. Donnell Alan in one week SONJA WRIGHT Jan 21, 2017 14:35
--- NOTE | 2017-01-21 14:53 | CONS ---
Date/Time of Note Date/Time of Note DATE: 01/21/17 TIME: 14:52 Assessment/Plan Assessment/Plan Chief Complaint/Hosp Course No acute changes, patient is in hemodialysis, looks comfortable no fevers. Temperature 97.8 pulse 78 respirations 20 blood pressure 152/71 WBC 10.9 H&H 9.1 and 28.1 platelets 164 neutrophils 83 Indwelling: Right upper extremity AV fistula Antibiotics: Vanco Levaquin Physical examination: Obese, well-developed elderly woman who is in no distress. Head atraumatic normocephalic sclera nonicteric bugle mucosa dry neck is obese trachea midline chest rise symmetrical breath sounds clear. Heart S1-S2. Abdomen soft bowel tones present. Extremities no cyanosis Assessment: 1. Acute cholecystitis status post lap cholecystectomy 2. Mild MRSA UTI, status post vancomycin dose 3. Diabetes 4. End-stage renal disease, hemodialysis dependent Plan: Remain stable, okay discharge on oral Levaquin for 7 days when cleared by surgery Problems: Consultation Date/Type/Reason Admit Date/Time Jan 18, 2017 at 13:20 Initial Consult Date 01/18/17 Type of Consultation: ID Exam/Review of Systems Vital Signs Vitals Vital Signs Date Time Temp Pulse Resp B/P Pulse Ox O2 Delivery O2 Flow Rate FiO2 01/21/17 13:30 78 01/21/17 11:19 92 Room Air 01/21/17 11:00 18 01/21/17 08:51 97.8 152/71 01/21/17 08:14 3.0 Intake and Output 01/20/17 01/20/17 01/21/17 15:00 23:00 07:00 Intake Total 100 ml 535 ml 240 ml Output Total 24 ml Balance 100 ml 535 ml 216 ml Results Result Diagram: 01/21/17 0440 01/21/17 0440 Results 24 hrs Laboratory Tests Test 01/20/17 17:43 01/20/17 21:13 01/21/17 02:14 01/21/17 04:40 Bedside Glucose 291 H 181 192 White Blood Count 10.9 H Red Blood Count 3.01 L Hemoglobin 9.1 L Hematocrit 28.1 L Mean Corpuscular Volume 93.4 Mean Corpuscular Hemoglobin 30.2 Mean Corpuscular Hemoglobin Concent 32.4 Red Cell Distribution Width 15.8 H Platelet Count 164 Mean Platelet Volume 13.2 H Neutrophils % 83.0 H Lymphocytes % 8.2 L Monocytes % 7.4 Eosinophils % 0.6 Basophils % 0.3 Nucleated Red Blood Cells % 0.0 Neutrophils # 9.1 H Lymphocytes # 0.9 Monocytes # 0.8 Eosinophils # 0.1 Basophils # 0.0 Nucleated Red Blood Cells # 0.0 Sodium Level 135 Potassium Level 3.8 Chloride Level 94 L Carbon Dioxide Level 25 Anion Gap 20 H Blood Urea Nitrogen 46 #H Creatinine 5.95 H Glucose Level 186 Calcium Level 8.6 Test 01/21/17 07:58 01/21/17 12:18 Bedside Glucose 170 186 Medications Medications Current Medications Hydromorphone HCl (Dilaudid) 0.5 mg Q4H PRN IV SEVERE PAIN LEVEL 7-10 Last administered on 01/20/17 09:03; Admin Dose 0.5 MG; Start 01/18/17 at 07:00 Pantoprazole (Protonix Iv) 40 mg DAILY@06 IV Last administered on 01/20/17 05: 44; Admin Dose 40 MG; Start 01/19/17 at 06:00 Amlodipine Besylate (Norvasc) 10 mg DAILY PO Last administered on 01/20/17 09: 03; Admin Dose 10 MG; Start 01/18/17 at 09:00 Calcitriol (Rocaltrol) 0.25 mcg DAILY PO Last administered on 01/21/17 08:13; Admin Dose 0.25 MCG; Start 01/18/17 at 09:00 Cinacalcet (Sensipar) 30 mg DAILY PO Last administered on 01/21/17 08:14; Admin Dose 30 MG; Start 01/18/17 at 09:00 Loratadine (Claritin) 10 mg DAILY PO Last administered on 01/21/17 08:14; Admin Dose 10 MG; Start 01/18/17 at 09:00 Miscellaneous Information 1 ea NOTE XX ; Start 01/18/17 at 07:00 Glucose (Glutose) 15 gm Q15M PRN PO DECREASED GLUCOSE; Start 01/18/17 at 07:00 Glucose (Glutose) 22.5 gm Q15M PRN PO DECREASED GLUCOSE; Start 01/18/17 at 07: 00 Dextrose (D50w Syringe) 25 ml Q15M PRN IV DECREASED GLUCOSE; Start 01/18/17 at 07:00 Dextrose (D50w Syringe) 50 ml Q15M PRN IV DECREASED GLUCOSE; Start 01/18/17 at 07:00 Glucagon (Glucagen) 1 mg Q15M PRN IM DECREASED GLUCOSE; Start 01/18/17 at 07:00 Glucose 15 gm 15 gm Q15M PRN BUCCAL DECREASED GLUCOSE; Start 01/18/17 at 07:00 Piperacillin Sod/ Tazobactam Sod (Zosyn 2.25gm/ 50ml (Pmx)) 50 ml @ 100 mls/hr Q8 IVPB Last administered on 01/20/17 15:05; Admin Dose 100 MLS/HR; Start at 22:00; Status Future Hold Oxycodone/ Acetaminophen (Percocet (5/ 325)) 1 tab Q4H PRN PO MILD PAIN (1-3); Start 01/19/17 at 12:00 Oxycodone/ Acetaminophen (Percocet (5/ 325)) 2 tab Q4H PRN PO MODERATE PAIN (4- 6) Last administered on 01/21/17 04:45; Admin Dose 2 TAB; Start 01/19/17 at 12: 00 Ondansetron HCl (Zofran Inj) 4 mg Q6H PRN IV NAUSEA; Start 01/19/17 at 12:00 Diagnostic Test (Pha) (Accu-Chek) 1 ea 02 XX ; Start 01/20/17 at 02:00 Miscellaneous Information Patients own medicat... BID@10,16 XX ; Start 01/20/17 at 10:00 Acetaminophen (Tylenol Tab) 650 mg Q6H PRN PO PAIN AND OR ELEVATED TEMP; Start 01/19/17 at 20:30 Insulin Glargine (Lantus) 14 unit DAILY@20 SC Last administered on 01/20/17 21 :18; Admin Dose 14 UNIT; Start 01/20/17 at 20:00 Levofloxacin 250 mg 250 mg Q48H PO ; Start 01/22/17 at 22:00 Vancomycin HCl/ Sodium Chloride (Vancocin/NS) 250 ml @ 83.333 mls/ hr ONCE IVPB Last administered on 01/21/17 13:26; Admin Dose 83.333 MLS/HR; Start at 15:00; Stop 01/21/17 at 17:59 KAREY MONTERO NP Jan 21, 2017 14:53
[2017-01-21] MEDS ORDERED: VANCOMYCIN 1.25 GM in SOD CHLORIDE 0.9% 250 ML IVPB SCH (15:00)
--- NOTE | 2017-01-21 16:36 | DS ---
Date/Time of Note Date/Time of Note DATE: 01/21/17 TIME: 16:31 Discharge Summary Admission/Discharge Info Admit Date/Time Jan 18, 2017 at 13:20 Discharge Date/Time Discharge Diagnosis 1. Abdominal pain secondary to cholecystitis 2. Diabetes 3. Essential hypertension 4. Dyslipidemia 5. Reported UTI with MRSA Patient Condition: Stable Consults 1. Dr. Óscar Doyle 2. Dr. Donnell Alan 3. Dr. Felipe Faith Hx of Present Illness This is a 69-year-old female history of CKD with end-stage renal disease on dialysis on Wednesday and Wednesday, hypertension, anemia chronic disease , acidemia, diabetes, history of right lung nodule and thyroid nodule who did come to [facility] due to reports of 3 days of abdominal pain. Patient did report abdominal pain was more on left upper abdominal quadrant with no radiation. She did have associated nonbilious nonbloody emesis. No diarrhea reported. She also reported having some subjective chills and fevers at home. She subsequently went to [facility]. Upon examination she did have CT scan of her abdomen done on January 18, 2017 did show cholelithiasis within the gallbladder distention and wall thickening suggestive of findings consistent with cholecystitis. Additionally she also had a white count of 16.5. She did have slight mild fever as high as 9 9.5 and was slightly tachycardic with heart rate of 101. Of note patient also have elevated glucose as high as 222 on admission. She did have initial troponin that was negative as well. She was also noted with some sinus tachycardia on EKG. Patient at present denies any chest pain or shortness of breath. She denies any other extensive cardiac history. She does report that her abdominal pain is slightly resolving and does have good control with analgesics at present. We will evaluate her for the aformentiond issues Hospital Course This is a 69-year-old female with history of CKD with end-stage renal disease with dialysis on Wednesday, , Wednesday, hypertension, anemia of chronic disease, diabetes, who did come to [facility] due to reports of abdominal pain for 3 days duration. Patient reports her abdominal pain is more in the left upper abdominal quadrant with no radiation. She also had some associated nonbilious nonbloody emesis. No reported diarrhea. She also reported having some subjective chills. She subsequently went to [facility] for further evaluation. Upon examination she did have CT scan of her abdomen and pelvis done on January 19, 2016 that did show cholelithiasis within the gallbladder and distention and wall thickening suggestive of findings consistent with cholecystitis. She also had elevated white count of 16.5. She was seen by general surgeon. She did undergo laparoscopic cholecystectomy. She did tolerate procedure well and her abdominal pain did subside. We were able to advance her diet and she did tolerate well as well. We also provided her with appropriate analgesics. Patient was seen with MRSA UTI and she was seen by ID consult. We did provide patient with appropriate antibiotics she did have good response. Patient was also seen by her finisher hot strip for continuation of her dialysis. During the course of stay she did improve. She was otherwise optimized medically. She was continue on insulin for diabetes and antihypertensives for hypertension. She was instructed to follow-up with surgeon within a week. The plan of care was discussed with the patient and patient did verbalize understanding. On the day of discharge patient was in stable condition Discussed plan of care with Dr. Pacheco [facility] Active Scripts Cephalexin* (Cephalexin*) 500 Mg Capsule, 500 MG PO Q8, #15 CAP Prov:SONJA WRIGHT 01/21/17 Cinacalcet* (Sensipar*) 30 Mg Tab, 30 MG PO DAILY for 30 Days, TAB Prov:HIDALGODILLANA [employer]UD[employer] TEACHER 03/30/16 Calcitriol* (Calcitriol*) 0.25 Mcg Capsule, 0.25 MCG PO DAILY for 30 Days, CAP Prov:HIDALGODILLANA [employer]UD[employer] TEACHER 03/30/16 Losartan Potassium* (Cozaar*) 50 Mg Tablet, 50 MG PO BID for 30 Days, TAB Prov:HIDALGO,PRISCILA [employer]. [employer]UDIES TEACHER 03/30/16 Pantoprazole* (Pantoprazole*) 40 Mg Tablet.dr 40 MG PO DAILY@06 for 30 Days Prov:PRISCILA HIDALGO [employer]UDIES TEACHER 03/30/16 Multivit/Ca Carb/B Cmplx/Fa* (Jennifer-Black*) 1 Tab Tab, 1 TAB PO DAILY for 30 Days , TAB Prov:PRISCILA HIDALGO [employer]UD[employer] TEACHER 03/30/16 Reported Medications Insulin Isophan/Regular (Humulin 70/30) 100 Units/Ml Susp, 1 UNIT SC HS, EA 03/19/16 Insulin Isophan/Regular (Humulin 70/30) 100 Units/Ml Susp, 1 UNIT SC AC BREAKFAST, EA 03/19/16 Acetaminophen* (Tylophen*) 500 Mg Capsule, 500 MG PO Q6H Y for MODERATE PAIN LEVEL 4-6, TAB 03/19/16 Lovastatin (Lovastatin) 40 Mg Tablet, 40 MG PO HS, TAB 03/19/16 Amlodipine Besylate* (Amlodipine Besylate*) 10 Mg Tablet, 10 MG PO DAILY, #30 TAB 03/19/16 Mirtazapine* (Mirtazapine*) 7.5 Mg Tablet, 7.5 MG PO HS, TAB 03/19/16 Loratadine* (Loratadine*) 10 Mg Tablet, 10 MG PO DAILY, #30 TAB 03/19/16 Follow-up Plan CONDITION Patient Condition: Stable HOME CARE INSTRUCTIONS: Special Diet: CARB CONTROL FOLLOW UP/APPOINTMENTS Follow-up Plan 1. Follow up with Dr. Donnell Alan in one week Primary Care Provider Care Physician No Primary Time spent on discharge: > 30 minutes Pending Labs Laboratory Tests Test 01/20/17 17:43 01/20/17 21:13 01/21/17 02:14 01/21/17 04:40 Bedside Glucose 291mg/dL (70-220) 181mg/dL (70-220) 192mg/dL (70-220) White Blood Count 10.910^3/ul (4.8-10.8) Red Blood Count 3.0110^6/ul (4.20-5.40) Hemoglobin 9.1g/dl (12.0-16.0) Hematocrit 28.1% (37.0-47.0) Mean Corpuscular Volume 93.4fl (82.0-101.0) Mean Corpuscular Hemoglobin 30.2pg (29.0-33.0) Mean Corpuscular Hemoglobin Concent 32.4g/dl (32.0-37.0) Red Cell Distribution Width 15.8% (11.5-14.5) Platelet Count 16906^3/UL (140-415) Mean Platelet Volume 13.2fl (7.4-10.4) Neutrophils % 83.0% (39.0-77.0) Lymphocytes % 8.2% (15.0-51.0) Monocytes % 7.4% (0.0-11.0) Eosinophils % 0.6% (0.0-7.0) Basophils % 0.3% (0.0-2.0) Nucleated Red Blood Cells % 0.0/100WBC (0.0-0.0) Neutrophils # 9.110^3/ul (1.6-7.5) Lymphocytes # 0.910^3/ul (0.8-2.9) Monocytes # 0.810^3/ul (0.3-0.9) Eosinophils # 0.110^3/ul (0.0-0.5) Basophils # 0.010^3/ul (0.0-0.1) Nucleated Red Blood Cells # 0.010^3/ul (0.0-0.0) Sodium Level 135mmol/L (135-144) Potassium Level 3.8mmol/L (3.5-5.1) Chloride Level 94mmol/L (97-110) Carbon Dioxide Level 25mmol/L (21-31) Anion Gap 20 (8-16) Blood Urea Nitrogen 46mg/dl (7-20) Creatinine 5.95mg/dl (0.44-1.00) Glucose Level 186mg/dl (70-220) Calcium Level 8.6mg/dl (8.4-10.2) Test 01/21/17 07:58 01/21/17 12:18 Bedside Glucose 170mg/dL (70-220) 186mg/dL (70-220) SONJA WRIGHT Jan 21, 2017 16:35
[2017-01-21] MEDS: INSULIN GLARGINE [LANtus] 3 ML PEN SC SCH (20:45)
[2017-01-22] MEDS ORDERED: LEVOFLOXACIN 250 MG TAB PO SCH (22:00)
== END 2017-01-21 22:30 | disposition home or self-care (01) | DRG 417 ==
LOC: FTE 23:39 → PP2 01-18 04:59 → OBSVTOIN 01-18 13:20
PROVIDERS: ADMIT Family Medicine; ATTEND Family Medicine
PROC: 5A1D60Z (ICD-10-PCS; 2017-01-19)
PROC: 0FT44ZZ Resection of Gallbladder, Percutaneous Endoscopic Approach (ICD-10-PCS; principal; 2017-01-19 10:30)
DX: K80.00 Calculus of gallbladder with acute cholecystitis without obstruction (principal); N18.6 End stage renal disease; E11.22 Type 2 diabetes mellitus with diabetic chronic kidney disease; I12.0 Hypertensive chronic kidney disease with stage 5 chronic kidney disease or end stage renal disease; N39.0 Urinary tract infection, site not specified; E78.5 Hyperlipidemia, unspecified; K21.9 Gastro-esophageal reflux disease without esophagitis; B95.62 Methicillin resistant Staphylococcus aureus infection as the cause of diseases classified elsewhere; D63.8 Anemia in other chronic diseases classified elsewhere; Z87.891 Personal history of nicotine dependence; Z99.2 Dependence on renal dialysis; Z79.4 Long term (current) use of insulin
CPT/HCPCS: 36415; 74176; 80048; 80053; 80061; 81001; 82962; 83036; 83690; 83735; 84436; 84443; 84479; 84484; 85025; 85610; 85730; 87086; 88304; 90935; 93005; 93306; 96361; 96365; 96372; 96375; 96376; 97161; G0378; C9113; J1100; J1170; J1815; J2250; J2270; J2405; J2543; J2710; J2765; J2795; J3010; J3370; J7030; J7042; J7050

== ENCOUNTER 2017-01-24 10:03 | Inpatient (IN) | payer MEDICARE, OTHER ==
[~2017-01-24] VITALS: Ht 165.1 cm; Wt 74.0 kg
[~2017-01-24 10:03] MED LIST changes: +CEPH500C PO; +Oxycodone/Acetamin (5/325) PO
[2017-01-24] MEDS ORDERED: SOD CHLORIDE 0.9% 1,000 ML IV STA (10:06)
[2017-01-24] MEDS ORDERED: morphine 4 MG/ML VIAL IV STA (10:06)
[2017-01-24] MEDS ORDERED: ONDANSETRON 4 MG INJ IV STA (10:06)
[2017-01-24] MEDS ORDERED: SOD CHLORIDE 0.9% 100 ML ONE (10:18)
[2017-01-24] MEDS ORDERED: IOHEXOL 300MG/ML 150 ML BTL ONE (10:18)
--- NOTE | 2017-01-24 10:24 | ERA ---
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 The patient had surgery on the for cholecystitis. The patient was discharged on the . She reports significant abdominal pain and distention. She is a dialysis patient did not receive dialysis yesterday which was her scheduled day. The pain is severe, constant with mild nausea. No vomiting. Last bowel movement yesterday. Patient does not make urine. She denies fevers. ROS All systems reviewed and are negative except as per history of present illness. Medications Home Meds Active Scripts Cinacalcet* (Sensipar*) 30 Mg Tab, 30 MG PO DAILY for 30 Days, TAB Prov:PRISCILA HIDALGO NP 03/30/16 Calcitriol* (Calcitriol*) 0.25 Mcg Capsule, 0.25 MCG PO DAILY for 30 Days, CAP Prov:PRISCILA HIDALGO NP 03/30/16 Losartan Potassium* (Cozaar*) 50 Mg Tablet, 50 MG PO BID for 30 Days, TAB Prov:PRISCILA HIDALGO NP 03/30/16 Pantoprazole* (Pantoprazole*) 40 Mg Tablet.dr, 40 MG PO DAILY@06 for 30 Days Prov:PRISCILA HIDALGO NP 03/30/16 Multivit/Ca Carb/B Cmplx/Fa* (Jennifer-Black*) 1 Tab Tab, 1 TAB PO DAILY for 30 Days , TAB Prov:PRISCILA HIDALGO NP 03/30/16 Reported Medications Oxycodone HCl/Acetaminophen (Percocet 5-325 mg Tablet) 1 Each Tablet, 1 EACH PO Q4 Y for PAIN, TAB 01/24/17 Insulin Isophan/Regular (Humulin 70/30) 100 Units/Ml Susp, 0 SC HS, EA UNITS NOT KNOW USE SLIDING SCALE 01/24/17 Insulin Isophan/Regular (Humulin 70/30) 100 Units/Ml Susp, 0 SC AC BREAKFAST, EA UNITS NOT KNOW USE SLIDING SCALE 01/24/17 Acetaminophen* (Tylophen*) 500 Mg Capsule, 500 MG PO Q6H Y for MODERATE PAIN LEVEL 4-6, TAB 03/19/16 Lovastatin (Lovastatin) 40 Mg Tablet, 40 MG PO HS, TAB 03/19/16 Amlodipine Besylate* (Amlodipine Besylate*) 10 Mg Tablet, 10 MG PO DAILY, #30 TAB 03/19/16 Mirtazapine* (Mirtazapine*) 7.5 Mg Tablet, 7.5 MG PO HS, TAB 03/19/16 Loratadine* (Loratadine*) 10 Mg Tablet, 10 MG PO DAILY, #30 TAB 03/19/16 Discontinued Reported Medications Insulin Isophan/Regular (Humulin 70/30) 100 Units/Ml Susp, 1 UNIT SC HS, EA 03/19/16 Insulin Isophan/Regular (Humulin 70/30) 100 Units/Ml Susp, 1 UNIT SC AC BREAKFAST, EA 03/19/16 Discontinued Scripts Cephalexin* (Cephalexin*) 500 Mg Capsule, 500 MG PO Q8, #15 CAP Prov:SONJA WRIGHT 01/21/17 [Oxycodone/Acetamin (5/325)] 1 TAB TAB No Conflict Check, 1 TAB PO Q4H Y for MILD PAIN (1-3), #30 Prov:SONJA WRIGHT 01/21/17 Allergies Allergies: Coded Allergies: No Known Drug Allergies (Unverified Allergy, Unknown, 01/24/17) PMhx/Soc History of Surgery: Yes (left ankle orif 2009 and right knee orif 2011) Anesthesia Reaction: No Hx Neurological Disorder: No Hx Respiratory Disorders: No Hx Cardiac Disorders: Yes (hypertension) Hx Psychiatric Problems: No Hx Miscellaneous Medical Probl: Yes (DM, GERD, R lung, thyroid nodules, HTN, anemia, acidemia, ESRD on HD T/T/S) Hx Alcohol Use: No Hx Substance Use: No Hx Tobacco Use: No FmHx Family History: No diabetes Physical Exam Vitals Vital Signs Date Time Temp Pulse Resp B/P Pulse Ox O2 Delivery O2 Flow Rate FiO2 01/24/17 12:00 98.3 86 20 173/95 94 Room Air 01/24/17 11:00 98.3 89 20 153/91 99 Room Air 01/24/17 10:28 98.8 86 18 187/74 97 01/24/17 10:05 98.3 89 20 187/74 98 Room Air Physical Exam General: Uncomfortable Head: Normocephalic, atraumatic. Eyes: Pupils equally reactive, EOM intact ENT: Moist mucous membranes Neck: Supple, no lymphadenopathy Respiratory: Lungs clear bilaterally, no distress Cardiovascular: RRR, no murmurs, rubs, or gallops Abdominal: Soft, protuberant, surgical wounds appear to be intact, diffuse tenderness without rebound or guarding : Deferred MSK: No edema, no unilateral swelling, 5/5 strength, right upper extremity AV fistula with good bruit and thrill Neurologic: Alert and oriented, moving all extremities, normal speech, no focal weakness, no cerebellar signs Skin: No rash Psych: Normal mood Result Diagram: 01/24/17 1018 01/24/17 1018 Results 24 hrs Laboratory Tests Test 01/24/17 10:18 01/24/17 10:50 01/24/17 11:40 White Blood Count 12.310^3/ul Red Blood Count 3.4810^6/ul Hemoglobin 10.6g/dl Hematocrit 31.7% Mean Corpuscular Volume 91.1fl Mean Corpuscular Hemoglobin 30.5pg Mean Corpuscular Hemoglobin Concent 33.4g/dl Red Cell Distribution Width 15.7% Platelet Count 80073^3/UL Mean Platelet Volume 12.6fl Neutrophils % 79.2% Lymphocytes % 10.2% Monocytes % 7.5% Eosinophils % 1.5% Basophils % 0.4% Nucleated Red Blood Cells % 0.0/100WBC Neutrophils # 9.710^3/ul Lymphocytes # 1.310^3/ul Monocytes # 0.910^3/ul Eosinophils # 0.210^3/ul Basophils # 0.110^3/ul Nucleated Red Blood Cells # 0.010^3/ul Prothrombin Time 13.4Sec Prothrombin Time Ratio 1.0 INR International Normalized Ratio 1.02 Activated Partial Thromboplast Time 36.0Sec Sodium Level 132mmol/L Potassium Level 4.9mmol/L Chloride Level 86mmol/L Carbon Dioxide Level 23mmol/L Anion Gap 28 Blood Urea Nitrogen 66mg/dl Creatinine 7.80mg/dl Glucose Level 203mg/dl Calcium Level 9.3mg/dl Total Bilirubin 0.0mg/dl Direct Bilirubin 0.00mg/dl Indirect Bilirubin 0.0mg/dl Aspartate Amino Transf (AST/SGOT) 30IU/L Alanine Aminotransferase (ALT/SGPT) 42IU/L Alkaline Phosphatase 84IU/L Total Protein 7.7g/dl Albumin 4.1g/dl Globulin 3.60g/dl Albumin/Globulin Ratio 1.13 Lipase 64U/L Lactic Acid Level 1.4mmol/L Urine Color STRAW Urine Clarity CLEAR Urine pH 7.0 Urine Specific [place] 1.008 Urine Ketones NEGATIVEmg/dL Urine Nitrite NEGATIVEmg/dL Urine Bilirubin NEGATIVEmg/dL Urine Urobilinogen NEGATIVEmg/dL Urine Leukocyte Esterase NEGATIVELeu/ul Urine Microscopic RBC 0/HPF Urine Microscopic WBC 1/HPF Urine Hemoglobin NEGATIVEmg/dL Urine Glucose 1+mg/dL Urine Total Protein 2+mg/dl Current Medications Medications (Trade) Dose Ordered Sig/Holger Route PRN Reason Start Time Stop Time Status Last Admin Dose Admin Sodium Chloride (NS) 1,000 ml @ 1,000 mls/hr Q1H STAT IV 01/24/17 10:06 01/24/17 11:05 DC 01/24/17 10:24 Morphine Sulfate (morphine) 4 mg ONCE STAT IV 01/24/17 10:06 01/24/17 10:08 DC 01/24/17 10:23 Ondansetron HCl (Zofran Inj) 4 mg ONCE STAT IV 01/24/17 10:06 01/24/17 10:08 DC 01/24/17 10:23 Iohexol 150 ml 150 ml STK-MED ONCE .ROUTE 01/24/17 10:18 01/24/17 10:19 DC 01/24/17 10:44 Sodium Chloride (NS) 100 ml @ ud STK-MED ONCE .ROUTE 01/24/17 10:18 01/24/17 10:19 DC 01/24/17 10:44 Hydromorphone HCl (Dilaudid) 0.5 mg ONCE STAT IV 01/24/17 11:19 01/24/17 11:20 DC 01/24/17 11:23 Hydromorphone HCl (Dilaudid) 1 mg STK-MED ONCE .ROUTE 01/24/17 11:20 01/24/17 11:21 DC Ondansetron HCl (Zofran Inj) 4 mg BRIDGE ORDER PRN IV NAUSEA AND/OR VOMITING 01/24/17 11:30 01/25/17 11:29 Acetaminophen (Tylenol Tab) 650 mg ER BRIDGE PRN PO MILD PAIN/FEVER 01/24/17 11:30 01/25/17 11:29 Mineral Oil (Fleet Mineral Oil Enema) 133 ml ONCE ONCE FL 01/24/17 12:30 01/24/17 12:31 Hydromorphone HCl (Dilaudid) 0.5 mg Q4H PRN IV SEVERE PAIN LEVEL 7-10 01/24/17 12:30 Magnesium Hydroxide (Milk Of Mag) 30 ml DAILY PRN PO CONSTIPATION 01/24/17 12:30 Pantoprazole (Protonix Iv) 40 mg DAILY@06 IV 01/25/17 06:00 Magnesium Hydroxide (Milk Of Mag) 30 ml ONCE ONCE PO 01/24/17 12:30 01/24/17 12:31 Miscellaneous Information (* Miscellaneous Pharmacy Order) Discontinue current oral sulfonylur... ONCE ONCE XX 01/24/17 12:30 01/24/17 12:31 Diagnostic Test (Pha) (Accu-Chek) 1 ea 02 XX 01/25/17 02:00 Insulin Glargine (Lantus) 15 unit DAILY@08 CA 01/25/17 08:00 Miscellaneous Information (* Miscellaneous Pharmacy Order) HYPOGLYCEMIA PROTOCOL w... ONCE ONCE XX 01/24/17 12:30 01/24/17 12:31 Insulin Aspart (Novolog Insulin Pen) NOVOLOG *MODERATE* ALGORITHM WITH MEALS BEDTIME CA 01/24/17 18:00 Miscellaneous Information (* Miscellaneous Pharmacy Order) Discontinue all previ... ONCE ONCE XX 01/24/17 12:30 01/24/17 12:31 Amlodipine Besylate (Norvasc) 10 mg DAILY PO 01/24/17 12:30 Miscellaneous Information 1 ea NOTE XX 01/24/17 12:30 Glucose (Glutose) 15 gm Q15M PRN PO DECREASED GLUCOSE 01/24/17 12:30 Glucose (Glutose) 22.5 gm Q15M PRN PO DECREASED GLUCOSE 01/24/17 12:30 Dextrose (D50w Syringe) 25 ml Q15M PRN IV DECREASED GLUCOSE 01/24/17 12:30 Dextrose (D50w Syringe) 50 ml Q15M PRN IV DECREASED GLUCOSE 01/24/17 12:30 Glucagon (Glucagen) 1 mg Q15M PRN IM DECREASED GLUCOSE 01/24/17 12:30 Glucose (Glutose) 15 gm Q15M PRN BUCCAL DECREASED GLUCOSE 7/23/17 12:30 Cephalexin (Keflex) 500 mg Q8 PO 01/24/17 14:00 Losartan Potassium (Cozaar) 50 mg DAILY PO 01/24/17 12:30 Mirtazapine (Remeron) 7.5 mg HS PO 01/24/17 21:00 Calcitriol (Rocaltrol) 0.25 mcg DAILY PO 01/25/17 09:00 Cinacalcet (Sensipar) 30 mg DAILY PO 01/25/17 09:00 Labetalol HCl (Labetalol) 10 mg Q4H PRN IV SBP>160 01/24/17 12:30 Procedures/MDM EKG, MONITORS, & DIAGNOSTIC IMAGING: CXR Chest x-ray: I reviewed and interpreted a 1 view of the chest Mediastinum: No enlargement Cardiac silhouette: No cardiomegaly Airspace: Clear lung mckinnon bilaterally without evidence of pneumothorax Bones: No evidence of fracture EKG EKG: I reviewed and interpreted a 12-lead EKG. Rhythm: Normal sinus rhythm Ectopy: None Intervals: No abnormalities ST segments: No elevations or depressions T waves: No contiguous inversions CT a/p w/ IV contrast IMPRESSION: 1. Postsurgical changes of recent cholecystectomy with mild dilatation of the common bile duct likely from cholecystectomy changes. No evidence of a calculus within the common bile duct. No intra-abdominal abscess or acute intra -abdominal abnormality. 2. Mild distension of the right colon and cecum with stool which can be seen with constipation. 3. Atrophy of the bilateral kidneys which can be seen with chronic renal disease. 4. Mild hepatomegaly. 5. Mild to moderate atherosclerotic vascular disease. LAB INTERPRETATION: Very mild leukocytosis of 12.3, end-stage renal disease but no hyperkalemia, normal lactic acid MEDICAL DECISION MAKING: The patient presents with abdominal pain, nausea status post surgery for cholecystitis. The patient is at risk for ileus, bowel obstruction, complications such as abscess. The patient also missed dialysis and is at risk for hyperkalemia. The patient will benefit from laboratory testing, EKG, diagnostic imaging, symptom and pain control. The patient will likely require hospitalization. She is extremely uncomfortable. Given her age she is at risk for these complications. ER COURSE: The patient has required multiple doses of pain medication to control her pain. For this reason she will benefit from inpatient hospitalization for pain control. Possibly consistent with normal postoperative pain. I spoke to Dr. Alan. He feels there is no evidence of acute surgical issue at this time. I agree. The patient can be admitted to the medical surgical service with further observation and arrangement of nonemergent dialysis. The patient also had difficulty urinating. A catheter was placed with output of greater than 300 cc of urine consistent with urinary retention. Botello catheter remains. I kept the patient and/or family informed of laboratory and diagnostic imaging results throughout the emergency room course. DISPOSITION PLAN: Medical surgical admission for management of intractable abdominal pain CONSULTATION: Accepting care team and consultations: I discussed the current laboratory data, diagnostic imaging and emergency care provided. Admitting team: Dr. Pacheco Admitting team indication: Insurance directed Consulting services: Dr. Alan notified Departure Diagnosis: Primary Impression: Intractable abdominal pain Additional Impressions: Postoperative abdominal pain Urinary retention End stage renal disease on dialysis Condition: Stable CHARISMA ARMANDO MD Jan 24, 2017 10:24
[2017-01-24 10:25] LABS: BASOPHIL # 0.1 10^3/ul (0.0-0.1); BASOPHILS % 0.4 % (0.0-2.0); EOSINOPHILS # 0.2 10^3/ul (0.0-0.5); EOSINOPHILS % 1.5 % (0.0-7.0); HEMATOCRIT 31.7 % (37.0-47.0); HEMOGLOBIN 10.6 g/dl (12.0-16.0); LYMPHOCYTES # 1.3 10^3/ul (0.8-2.9); LYMPHOCYTES % 10.2 % (15.0-51.0); MEAN CORPUSCULAR HEMOGLOBIN 30.5 pg (29.0-33.0); MEAN CORPUSCULAR HGB CONC 33.4 g/dl (32.0-37.0); MEAN CORPUSCULAR VOLUME 91.1 fl (82.0-101.0); MEAN PLATELET VOLUME 12.6 fl (7.4-10.4); MONOCYTE # 0.9 10^3/ul (0.3-0.9); MONOCYTES % 7.5 % (0.0-11.0); NEUTROPHIL # 9.7 10^3/ul (1.6-7.5); NEUTROPHILS % 79.2 % (39.0-77.0); PLATELET COUNT 228 10^3/UL (140-415); RED BLOOD COUNT 3.48 10^6/ul (4.20-5.40); RED CELL DISTRIBUTION WIDTH 15.7 % (11.5-14.5); WHITE BLOOD COUNT 12.3 10^3/ul (4.8-10.8)
[2017-01-24 10:43] LABS: ALBUMIN 4.1 g/dl (3.3-4.9); ALBUMIN/GLOBULIN RATIO 1.13; CALCIUM 9.3 mg/dl (8.4-10.2); CREATININE 7.8 mg/dl (0.44-1.00); POTASSIUM 4.9 mmol/L (3.5-5.1); TOTAL PROTEIN 7.7 g/dl (6.1-8.1)
--- NOTE | 2017-01-24 10:55 | RADRPT ---
PROCEDURE: CT Abdomen and Pelvis with contrast. CLINICAL INDICATION: Abdominal pain with history of insulin dependent diabetes. TECHNIQUE: CT scan of the abdomen and pelvis with contrast was performed. The patient was scanned following the uncomplicated intravenous administration of 90 cc of Omnipaque 350. Coronal and sagi ttal reformatted images were obtained from the axial source images. Images were reviewed on a high-r [employer] PACS workstation. CTDI 21 mGy, DLP 1122 mGy-cm One or more of the following dose reduction techniques were used: Automated exposure control Adjustment of the mA and/or kV according to patient size. Use of iterative reconstruction technique. COMPARISON: 01/18/2017 FINDINGS: There is minimal, dependent atelectasis at the lung bases. Otherwise, the lung bases are clear, with out mass or pleural effusion. There is cardiomegaly. The aorta and its branches are normal in size and caliber with mild to moderate atherosclerotic calc ifications and plaque. Postsurgical changes of recent cholecystectomy are noted with surgical clips within the right upper quadrant. There is mild dilatation of the common bile duct measuring up to 11 mm in diameter, likel y from recent cholecystectomy. There is no intrahepatic biliary duct dilatation. There is mild fat stranding adjacent to the cholecystectomy bed from recent postsurgical changes. No fluid collectio ns or an abscess is visualized. The liver measures up to 19.8 cm cranial-caudal, which is enlarged. The liver is otherwise unremark able. The portal, superior mesenteric, splenic veins are patent. There is mild atrophy of the pancreas. The spleen and adrenal glands are unremarkable. The kidneys are small in caliber and atrophic with cortical thinning. There are no renal calculi or hydronephrosis. The ureters are normal in course and caliber, without urolithiasis. Evaluation of the gastrointestinal tract is limited due to the lack of oral contrast. The distal es ophagus is unremarkable. The stomach is mildly distended and grossly unremarkable. There is no evid ence of obstruction within the gastrointestinal tract. There is mild distension of the right colon a nd cecum with stool. There is no bowel wall thickening or pneumatosis. The appendix is visualized and is normal. There is no free intraperitoneal fluid or pneumoperitoneum. No mesenteric or retroperitoneal lymphadenopathy is present. There is no pelvic lymphadenopathy. The bladder is partially distended and grossly unremarkable. The uterus is small in caliber althoug h unremarkable. The ovaries are unchanged in appearance with small calcifications. No pelvic free f luid. There is mild fat stranding within the midline anterior abdominal wall from recent postsurgical gama ges with surgical jennifer. Multilevel degenerative disk disease is noted within the thoracolumbar s pine with prominent Schmorl's nodes within the lower thoracic and upper lumbar spine. There are als o degenerative changes within both hips. RPTAT: QQ IMPRESSION: 1. Postsurgical changes of recent cholecystectomy with mild dilatation of the common bile duct like ly from cholecystectomy changes. No evidence of a calculus within the common bile duct. No intra-a bdominal abscess or acute intra-abdominal abnormality. 2. Mild distension of the right colon and cecum with stool which can be seen with constipation. 3. Atrophy of the bilateral kidneys which can be seen with chronic renal disease. 4. Mild hepatomegaly. 5. Mild to moderate atherosclerotic vascular disease. .Elvia Giraldo MD, MD Date Time Electronically viewed and signed by .Elvia Giraldo MD, on 01/24/2017 10:55 .T/
[2017-01-24 10:57] LABS: INR 1.02; PROTIME 13.4 Sec (12.2-14.2)
--- NOTE | 2017-01-24 10:58 | RADRPT ---
PROCEDURE: XR Chest. CLINICAL INDICATION: Missed hemodialysis, evaluate for volume overload TECHNIQUE: Single frontal chest x-ray. COMPARISON: 03/23/2016 FINDINGS: The lungs are adequately expanded. Again noted is a 2.0 cm nodular opacity within the right upper l obe. There is no focal consolidation, pleural effusion, or pneumothorax. mild cardiomegaly is agai n noted. The bones are unchanged with degenerative disk disease within the thoracic spine. There ar e no acute fractures. RPTAT: QQ IMPRESSION: 1. Similar appearance of the 2.0 cm nodule within the right upper lobe. 2. Mild cardiomegaly. 3. No significant pulmonary edema. .Elvia Giraldo MD, MD Date Time Electronically viewed and signed by .Elvia Giraldo MD, MD on 01/24/2017 10:58 .T/
[2017-01-24] MEDS ORDERED: HYDROmorphONE 1 MG/ML SYG IV STA (11:19)
[2017-01-24] MEDS ORDERED: HYDROmorphONE 1 MG/ML SYG ONE (11:20)
[2017-01-24] MEDS ORDERED: ACETAMINOPHEN 325 MG TAB PO PRN (11:30)
[2017-01-24] MEDS ORDERED: ONDANSETRON 4 MG INJ IV PRN (11:30)
[2017-01-24] MEDS ORDERED: NOVO7030 SC ×2 (11:53)
[2017-01-24] MEDS ORDERED: OXYC-279 PO (11:54)
[2017-01-24 12:00] VITALS: TEMP 98.3
[2017-01-24 12:05] LABS: ADD UMIC YES; UR ASCORBIC ACID NEGATIVE (NEGATIVE); UR BILIRUBIN (Dip) NEGATIVE (NEGATIVE); UR BLOOD (Dip) NEGATIVE (NEGATIVE); UR CLARITY CLEAR (CLEAR); UR COLOR STRAW (YELLOW); UR GLUCOSE (Dip) 1+ mg/dL (NEGATIVE); UR KETONES (Dip) NEGATIVE (NEGATIVE); UR LEUKOCYTE ESTERASE (Dip) NEGATIVE Leu/ul (NEGATIVE); UR NITRITE (Dip) NEGATIVE (NEGATIVE); UR RBC 0 /HPF (0-5); UR SPECIFIC GRAVITY (Dip) 1.008 (1.003-1.030); UR TOTAL PROTEIN (Dip) 2+ mg/dl (NEGATIVE); UR UROBILINOGEN (Dip) NEGATIVE (NEGATIVE)
[2017-01-24] MEDS ORDERED: MAGNESIUM HYDROXIDE 30ML CUP PO PRN (12:30)
[2017-01-24] MEDS ORDERED: GLUCOSE GEL 15 GRAM TUBE BUCCAL PRN (12:30)
[2017-01-24] MEDS ORDERED: GLUCAGON 1 MG INJ IM PRN (12:30)
[2017-01-24] MEDS ORDERED: HYDROmorphONE 1 MG/ML SYG IV PRN ×2 (12:30→16:30)
[2017-01-24] MEDS ORDERED: MINERAL OIL 133 ML ENEMA PR ONE ×2 (12:30→16:00)
[2017-01-24] MEDS ORDERED: DEXTROSE 50% 50 ML SYRINGE IV PRN ×2 (12:30)
[2017-01-24] MEDS ORDERED: GLUCOSE GEL 15 GRAM TUBE PO PRN ×2 (12:30)
[2017-01-24] MEDS ORDERED: MAGNESIUM HYDROXIDE 30ML CUP PO ONE (12:30)
[2017-01-24] MEDS ORDERED: LABETALOL HCL 20MG INJ IV PRN (12:30)
--- NOTE | 2017-01-24 12:32 | HP ---
Date/Time of Note Date/Time of Note DATE: 01/24/17 TIME: 12:27 Assessment/Plan VTE Prophylaxis VTE Prophylaxis Intervention: SCD's Lines/Catheters Urinary Cath still in place: Yes Reason Cath still needed: terminal illness/intractable pain Assessment/Plan Chief Complaint/Hosp Course Patient is a 71-year-old female with recent laparoscopic cholecystectomy who presents to [facility] for worsening abdominal pain Assessment Abdominal pain Constipation Leukocytosis, mild End-stage renal disease Hypertension Diabetes mellitus, insulin-dependent GERD Plan -CT shows postop changes and mild distention of the right colon and cecum with stool-like and seems to constipation. Dr. Alan, surgery was consulted, Dr. Alan will see patient tomorrow -We will attempt mineral oil enema as well as milk of magnesia to help constipation which may be significantly affecting patient's abdominal pain -Nephrology will be consulted, Still trying to get a hold of Dr. Felipe Faiht as he saw patient last. Patient does not go to dialysis yesterday, will eventually need dialysis likely today -Continue home meds as necessary -Pain control -As needed blood pressure medications Morales Carranza DO Problems: HPI/ROS Admit Date/Time Admit Date/Time Hx of Present Illness Patient is a 71-year-old female with a past medical history significant for end-stage renal disease, hypertension, diabetes mellitus, GERD, recent laparoscopic cholecystectomy with Dr. Alan, who presents to [facility] for worsening abdominal pain. Patient reports worsening abdominal pain and distention since she was discharged 3 days ago and cannot tolerate the pain. There is associated nausea, however no episodes of vomiting. Patient does not make urine. Patient has no other significant complaints then intractable abdominal pain. However it should be noted that upon entering patient's room in the ED, patient was asleep and had to be woken up and then she immediately started withering in pain. PMH: End-stage renal disease, hypertension, diabetes mellitus, GERD, recent laparoscopic cholecystectomy Social: Former smoker, denies drinking or drugs Meds: Please see med rec, however does include Lantus and short-acting insulin, amlodipine 10 mg, losartan 50 mg, lovastatin 40 mg, mirtazapine 7.5 mg, calcitriol and Sensipar PMH/Family/Social Past Surgical History Past Surgical Hx: no surgical history Social History Smoking Status: Never smoker Exam/Review of Systems Vital Signs Vitals Vital Signs Date Time Temp Pulse Resp B/P Pulse Ox O2 Delivery O2 Flow Rate FiO2 01/24/17 12:00 98.3 86 20 173/95 94 Room Air Exam Exam Physical exam General: Patient is laying in bed and answers questions appropriately, however occasional withering in pain Mentation: Patient is alert and oriented 4, Head: Normocephalic atraumatic Eyes: EOMI, pupils reactive to light Neck: Supple, nontender, midline Respiratory: Clear to auscultation bilaterally Cardiovascular: regular rate, no obvious murmurs Gastrointestinal:diffuse mild tenderness, distended, bowel sounds heard. Neurological: Moves all extremities spontaneously Labs Result Diagram: 01/24/17 1018 01/24/17 1018 Medications Medications Current Medications Mineral Oil (Fleet Mineral Oil Enema) 133 ml ONCE ONCE [place] ; Start 01/24/17 at 12:30; Stop 01/24/17 at 12:31 Hydromorphone HCl (Dilaudid) 0.5 mg Q4H PRN IV SEVERE PAIN LEVEL 7-10; Start at 12:30 Magnesium Hydroxide (Milk Of Mag) 30 ml DAILY PRN PO CONSTIPATION; Start at 12:30 Pantoprazole (Protonix Iv) 40 mg DAILY@06 IV ; Start 01/25/17 at 06:00 Magnesium Hydroxide (Milk Of Mag) 30 ml ONCE ONCE PO ; Start 01/24/17 at 12:30 ; Stop 01/24/17 at 12:31 Miscellaneous Information (* Miscellaneous Pharmacy Order) Discontinue current oral sulfonylur... ONCE ONCE XX ; Start 01/24/17 at 12:30; Stop 01/24/17 at 12: 31 Diagnostic Test (Pha) (Accu-Chek) 1 ea 02 XX ; Start 01/25/17 at 02:00 Insulin Glargine (Lantus) 15 unit DAILY@08 SC ; Start 01/25/17 at 08:00 Miscellaneous Information (* Miscellaneous Pharmacy Order) HYPOGLYCEMIA PROTOCOL w... ONCE ONCE XX ; Start 01/24/17 at 12:30; Stop 01/24/17 at 12:31 Miscellaneous Information (* Miscellaneous Pharmacy Order) Discontinue all previ... ONCE ONCE XX ; Start 01/24/17 at 12:30; Stop 01/24/17 at 12:31 Amlodipine Besylate (Norvasc) 10 mg DAILY PO ; Start 01/24/17 at 12:30 Miscellaneous Information 1 ea NOTE XX ; Start 01/24/17 at 12:30 Glucose (Glutose) 15 gm Q15M PRN PO DECREASED GLUCOSE; Start 01/24/17 at 12:30 Glucose (Glutose) 22.5 gm Q15M PRN PO DECREASED GLUCOSE; Start 01/24/17 at 12: 30 Dextrose (D50w Syringe) 25 ml Q15M PRN IV DECREASED GLUCOSE; Start 01/24/17 at 12:30 Dextrose (D50w Syringe) 50 ml Q15M PRN IV DECREASED GLUCOSE; Start 01/24/17 at 12:30 Glucagon (Glucagen) 1 mg Q15M PRN IM DECREASED GLUCOSE; Start 01/24/17 at 12:30 Glucose (Glutose) 15 gm Q15M PRN BUCCAL DECREASED GLUCOSE; Start 01/24/17 at 12 :30 Cephalexin (Keflex) 500 mg Q8 PO ; Start 01/24/17 at 14:00 Losartan Potassium (Cozaar) 50 mg DAILY PO ; Start 01/24/17 at 12:30; Status UNV Mirtazapine (Remeron) 7.5 mg HS PO ; Start 01/24/17 at 21:00; Status UNV Calcitriol (Rocaltrol) 0.25 mcg DAILY PO ; Start 01/25/17 at 09:00; Status UNV Cinacalcet (Sensipar) 30 mg DAILY PO ; Start 01/25/17 at 09:00; Status UNV Labetalol HCl (Labetalol) 10 mg Q4 PRN IV SBP>160; Start 01/24/17 at 12:30; Status UNV MORALES CARRANZA Jan 24, 2017 12:32
[2017-01-24 13:00] VITALS: BP 167/73; RESP 19
[2017-01-24] MEDS: CEPHALEXIN 500 MG CAP PO SCH ×2 (14:46→20:27)
[2017-01-24] MEDS: AMLODIPINE 10 MG TAB PO SCH (14:46)
[2017-01-24] MEDS: LOSARTAN 50 MG TAB PO SCH (14:46)
[2017-01-24] MEDS: INSULIN ASPART [NOVOLOG] 3 ML PEN SC SCH ×2 (17:49→20:26)
[2017-01-24 18:25] VITALS: BP 166/79; RESP 19
[2017-01-24 19:25] VITALS: BP 175/72; RESP 20
[2017-01-24] MEDS: MIRTAZAPINE 15 MG TAB PO SCH (20:27)
[2017-01-24] MEDS: HYDROCODONE/APAP (5/325) TAB PO PRN (20:47)
[2017-01-24] MEDS ORDERED: FAMOTIDINE 20 MG TAB PO SCH (21:00)
[2017-01-24] MEDS ORDERED: morphine 10 MG INJ IM ONE (23:30)
[2017-01-25] VITALS (11 sets, daily range): BP systolic 116–171; BP diastolic 59–78; PULSE 71–94; RESP 18–19; Ht 165.1 cm; Wt 74.0 kg
[2017-01-25] MEDS: HYDROCODONE/APAP (5/325) TAB PO PRN ×4 (00:16→20:28)
[2017-01-25] MEDS: ACCU-CHEK XX SCH (02:00)
[2017-01-25 05:26] LABS: BASOPHIL # 0.1 10^3/ul (0.0-0.1); BASOPHILS % 0.5 % (0.0-2.0); EOSINOPHILS # 0.2 10^3/ul (0.0-0.5); EOSINOPHILS % 2.1 % (0.0-7.0); HEMATOCRIT 27.5 % (37.0-47.0); HEMOGLOBIN 9.2 g/dl (12.0-16.0); LYMPHOCYTES % 9.5 % (15.0-51.0); MEAN CORPUSCULAR HEMOGLOBIN 30.6 pg (29.0-33.0); MEAN CORPUSCULAR HGB CONC 33.5 g/dl (32.0-37.0); MEAN CORPUSCULAR VOLUME 91.4 fl (82.0-101.0); MEAN PLATELET VOLUME 12.4 fl (7.4-10.4); MONOCYTE # 0.9 10^3/ul (0.3-0.9); MONOCYTES % 7.9 % (0.0-11.0); NEUTROPHIL # 8.6 10^3/ul (1.6-7.5); PLATELET COUNT 226 10^3/UL (140-415); RED BLOOD COUNT 3.01 10^6/ul (4.20-5.40); RED CELL DISTRIBUTION WIDTH 15.5 % (11.5-14.5); WHITE BLOOD COUNT 10.9 10^3/ul (4.8-10.8)
[2017-01-25] MEDS: CEPHALEXIN 500 MG CAP PO SCH ×3 (05:30→20:27)
[2017-01-25] MEDS ORDERED: PANTOPRAZOLE 40 MG INJ IV SCH (06:00)
[2017-01-25] MEDS ORDERED: hydrALAzine 20 MG INJ IM PRN (06:00)
[2017-01-25 06:35] LABS: CALCIUM 9.1 mg/dl (8.4-10.2); CREATININE 8.38 mg/dl (0.44-1.00); MAGNESIUM 2.5 mg/dl (1.7-2.5); PHOSPHORUS 7.9 mg/dl (2.5-4.9); POTASSIUM 5.1 mmol/L (3.5-5.1)
[2017-01-25] MEDS: INSULIN ASPART [NOVOLOG] 3 ML PEN SC SCH ×4 (07:50→20:28)
--- NOTE | 2017-01-25 07:55 | CONS ---
Date/Time of Note Date/Time of Note DATE: 01/25/17 TIME: 07:52 Assessment/Plan Assessment/Plan Chief Complaint/Hosp Course - Abdominal pain - Post Cholecystectomy - Leukocytosis - End-stage renal disease [facility] [place] - Hyponatremia - Hypertension - Diabetes mellitus, insulin-dependent - GERD PLAN: bedside dialysis Aiming for UF ~ 1-2 Liters Monitoring Potassium D/C MOM ( No Aluminum containing antacids on Dialysis ) D/C PO Vit-D ( Is on IV Vitamine D @ Dialysis unit ) THANK YOU V MUCH Problems: Consultation Date/Type/Reason Admit Date/Time Date of Consultation: Jan 25, 2017 Type of Consultation: NEPHROLOGY Reason for Consultation ESRD Constitutional: no complaints Eyes: no complaints ENT: no complaints Respiratory: cough Cardiovascular: no complaints Gastrointestinal: nausea, pain Genitourinary: no complaints Musculoskeletal: no complaints Past Medical History Medical History: congestive heart failure, coronary artery disease, diabetes, GERD, renal disease Past Surgical History Past Surgical Hx: no surgical history, cholecystectomy Family History Significant Family History: no pertinent family hx Social History Alcohol Use: none Smoking Status: Never smoker Drug Use: none Exam/Review of Systems Vital Signs Vitals Vital Signs Date Time Temp Pulse Resp B/P Pulse Ox O2 Delivery O2 Flow Rate FiO2 01/25/17 06:37 71 147/67 01/25/17 05:42 98.2 18 95 Room Air Intake and Output 01/24/17 01/24/17 01/25/17 15:00 23:00 07:00 Intake Total 240 ml 850 ml Output Total 1400 ml 500 ml Balance -1160 ml 350 ml Exam Constitutional: alert, well developed Head: normocephalic Respiratory: crackles/rales Cardiovascular: edema, regular rate and rhythm, systolic murmur Gastrointestinal: distended, soft Results Result Diagram: 01/25/17 0437 01/25/17 0437 Results 24 hrs Laboratory Tests Test 01/24/17 10:18 01/24/17 10:50 01/24/17 11:00 01/24/17 11:40 White Blood Count 12.3 H Red Blood Count 3.48 L Hemoglobin 10.6 L Hematocrit 31.7 L Mean Corpuscular Volume 91.1 Mean Corpuscular Hemoglobin 30.5 Mean Corpuscular Hemoglobin Concent 33.4 Red Cell Distribution Width 15.7 H Platelet Count 228 # Mean Platelet Volume 12.6 H Neutrophils % 79.2 H Lymphocytes % 10.2 L Monocytes % 7.5 Eosinophils % 1.5 Basophils % 0.4 Nucleated Red Blood Cells % 0.0 Neutrophils # 9.7 H Lymphocytes # 1.3 Monocytes # 0.9 Eosinophils # 0.2 Basophils # 0.1 Nucleated Red Blood Cells # 0.0 Prothrombin Time 13.4 Prothrombin Time Ratio 1.0 INR International Normalized Ratio 1.02 Activated Partial Thromboplast Time 36.0 H Sodium Level 132 L Potassium Level 4.9 Chloride Level 86 L Carbon Dioxide Level 23 Anion Gap 28 H Blood Urea Nitrogen 66 H Creatinine 7.80 H Glucose Level 203 Calcium Level 9.3 Total Bilirubin 0.0 L Direct Bilirubin 0.00 Indirect Bilirubin 0.0 Aspartate Amino Transf (AST/SGOT) 30 Alanine Aminotransferase (ALT/SGPT) 42 Alkaline Phosphatase 84 Total Protein 7.7 Albumin 4.1 Globulin 3.60 H Albumin/Globulin Ratio 1.13 Lipase 64 Lactic Acid Level 1.4 Hemoglobin A1c 7.1 H Urine Color STRAW Urine Clarity CLEAR Urine pH 7.0 Urine Specific [place] 1.008 Urine Ketones NEGATIVE Urine Nitrite NEGATIVE Urine Bilirubin NEGATIVE Urine Urobilinogen NEGATIVE Urine Leukocyte Esterase NEGATIVE Urine Microscopic RBC 0 Urine Microscopic WBC 1 Urine Hemoglobin NEGATIVE Urine Glucose 1+ H Urine Total Protein 2+ H Test 01/24/17 14:50 01/24/17 17:15 01/24/17 17:26 01/24/17 20:23 Lactic Acid Level 0.8 0.9 Bedside Glucose 118 205 Test 01/25/17 02:33 01/25/17 04:37 Bedside Glucose 184 White Blood Count 10.9 H Red Blood Count 3.01 L Hemoglobin 9.2 L Hematocrit 27.5 L Mean Corpuscular Volume 91.4 Mean Corpuscular Hemoglobin 30.6 Mean Corpuscular Hemoglobin Concent 33.5 Red Cell Distribution Width 15.5 H Platelet Count 226 Mean Platelet Volume 12.4 H Neutrophils % 79.0 H Lymphocytes % 9.5 L Monocytes % 7.9 Eosinophils % 2.1 Basophils % 0.5 Nucleated Red Blood Cells % 0.0 Neutrophils # 8.6 H Lymphocytes # 1.0 Monocytes # 0.9 Eosinophils # 0.2 Basophils # 0.1 Nucleated Red Blood Cells # 0.0 Sodium Level 129 L Potassium Level 5.1 Chloride Level 84 L Carbon Dioxide Level 25 Anion Gap 25 H Blood Urea Nitrogen 71 H Creatinine 8.38 H Glucose Level 138 # Calcium Level 9.1 Phosphorus Level 7.9 H Magnesium Level 2.5 Medications Medications Current Medications Magnesium Hydroxide (Milk Of Mag) 30 ml DAILY PRN PO CONSTIPATION Last administered on 01/25/17 05:30; Admin Dose 30 ML; Start 01/24/17 at 12:30 Diagnostic Test (Pha) (Accu-Chek) 1 ea 02 XX ; Start 01/25/17 at 02:00 Insulin Glargine (Lantus) 15 unit DAILY@08 SC ; Start 01/25/17 at 08:00 Amlodipine Besylate (Norvasc) 10 mg DAILY PO Last administered on 01/24/17 14: 46; Admin Dose 10 MG; Start 01/24/17 at 12:30 Miscellaneous Information 1 ea NOTE XX ; Start 01/24/17 at 12:30 Glucose (Glutose) 15 gm Q15M PRN PO DECREASED GLUCOSE; Start 01/24/17 at 12:30 Glucose (Glutose) 22.5 gm Q15M PRN PO DECREASED GLUCOSE; Start 01/24/17 at 12: 30 Dextrose (D50w Syringe) 25 ml Q15M PRN IV DECREASED GLUCOSE; Start 01/24/17 at 12:30 Dextrose (D50w Syringe) 50 ml Q15M PRN IV DECREASED GLUCOSE; Start 01/24/17 at 12:30 Glucagon (Glucagen) 1 mg Q15M PRN IM DECREASED GLUCOSE; Start 01/24/17 at 12:30 Glucose (Glutose) 15 gm Q15M PRN BUCCAL DECREASED GLUCOSE; Start 01/24/17 at 12 :30 Cephalexin (Keflex) 500 mg Q8 PO Last administered on 01/25/17 05:30; Admin Dose 500 MG; Start 01/24/17 at 14:00 Losartan Potassium (Cozaar) 50 mg DAILY PO Last administered on 01/24/17 14:46 ; Admin Dose 50 MG; Start 01/24/17 at 12:30 Mirtazapine (Remeron) 7.5 mg HS PO Last administered on 01/24/17 20:27; Admin Dose 7.5 MG; Start 01/24/17 at 21:00 Calcitriol (Rocaltrol) 0.25 mcg DAILY PO ; Start 01/25/17 at 09:00 Cinacalcet (Sensipar) 30 mg DAILY PO ; Start 01/25/17 at 09:00 Labetalol HCl (Labetalol) 10 mg Q4H PRN IV SBP>160; Start 01/24/17 at 12:30 Hydromorphone HCl (Dilaudid) 1 mg Q4H PRN IV SEVERE PAIN LEVEL 7-10 Last administered on 01/24/17 17:49; Admin Dose 1 MG; Start 01/24/17 at 16:30 Acetaminophen/ Hydrocodone Bitart ([place] (5/325)) 1 tab Q4H PRN PO PAIN LEVEL 7 -10 Last administered on 01/25/17 00:16; Admin Dose 1 TAB; Start 01/24/17 at 21 :00 Famotidine (Pepcid) 20 mg DAILY PO ; Start 01/25/17 at 09:00 Acetaminophen/ Hydrocodone Bitart ([place] (5/325)) 2 tab Q4H PRN PO SEVERE PAIN LEVEL 7-10; Start 01/24/17 at 23:30 Hydralazine HCl (Apresoline) 10 mg Q4H PRN IM ELEVATED B/P Last administered on 01/25/17 05:47; Admin Dose 10 MG; Start 01/25/17 at 06:00 NILAM DODGE MD Jan 25, 2017 07:55
[2017-01-25] MEDS: INSULIN GLARGINE [LANtus] 3 ML PEN SC SCH (08:55)
[2017-01-25] MEDS: CINACALCET 30 MG TAB PO SCH (08:55)
[2017-01-25] MEDS: FAMOTIDINE 20 MG TAB PO SCH (08:55)
[2017-01-25] MEDS ORDERED: CALCITRIOL 0.25 MCG CAP PO SCH (09:00)
--- NOTE | 2017-01-25 10:05 | RADRPT ---
PROCEDURE: XR Abdomen. CLINICAL INDICATION: Abdominal distension. TECHNIQUE: Single view of the abdomen is available for review. COMPARISON: CT dated 01/24/2017. FINDINGS: There is surgical clips in the right upper quadrant and postoperative changes related to prior yasemin cystectomy. There is a Botello catheter tip overlying the urinary bladder. There is a moderate of st ool throughout the colon, suggestive of constipation. There are no abnormal calcifications overlyin g the urinary tracts. There are no acute osseous abnormalities. IMPRESSION: 1. Moderate of stool throughout the colon, suggestive of constipation. RPTAT: GG .Stevenson Benjamin MD, MD Date Time Electronically viewed and signed by .Stevenson Benjamin MD, MD on 01/25/2017 10:04 .P/
[2017-01-25] MEDS ORDERED: MAGNESIUM CITRATE 300 ML BTL PO ONE (12:00)
[2017-01-25] MEDS: AMLODIPINE 10 MG TAB PO SCH (12:48)
[2017-01-25] MEDS: LOSARTAN 50 MG TAB PO SCH (12:49)
--- NOTE | 2017-01-25 16:29 | PN ---
Date/Time of Note Date/Time of Note DATE: 01/25/17 TIME: 16:26 Assessment/Plan VTE Prophylaxis VTE Prophylaxis Intervention: heparin Lines/Catheters IV Catheter Type (from Nrsg): Saline Lock Urinary Cath still in place: No Assessment/Plan Chief Complaint/Hosp Course 71 yo female wtih DMII, ESRD on HD, s/p cholecystectomy who retunred with abdominal pain and with sounds like sciatica - Abdominal pain has resolved, now having BMs. Likley 2/2 to conspitation vs post surgical pain - ESRD: Continue HD - Will have PT/OT evaluate paitnet, consider placmeent in [facility] Problems: Subjective 24 Hr Interval Summary Free Text/Dictation Complains of pains in her legs, with shocks down the back of them occasionally. No focal weakness. States she is very nervous to return home, wants to go to a rehab facility to recuperate Abdominal pain has resolved Exam/Review of Systems Vital Signs Vitals Vital Signs Date Time Temp Pulse Resp B/P Pulse Ox O2 Delivery O2 Flow Rate FiO2 01/25/17 11:30 92 01/25/17 08:30 19 01/25/17 08:00 98.0 164/76 94 01/25/17 05:42 Room Air Intake and Output 01/24/17 01/24/17 01/25/17 15:00 23:00 07:00 Intake Total 240 ml 850 ml Output Total 1400 ml 500 ml Balance -1160 ml 350 ml Exam Appears comfortable, though anxious. AOx3 Converstant, appropriate RRR, no m/r/g Abd with surgical incisions c/d//i, ventral hernia Striaght leg test negative b/l Sensation in tact throughout to light touch Strenght 5/5 throughout Results Result Diagram: 01/25/17 0437 01/25/17 0437 Results 24 hrs Laboratory Tests Test 01/24/17 17:15 01/24/17 17:26 01/24/17 20:23 01/25/17 02:33 Lactic Acid Level 0.9 Bedside Glucose 118 205 184 Test 01/25/17 04:37 01/25/17 08:45 01/25/17 12:53 White Blood Count 10.9 H Red Blood Count 3.01 L Hemoglobin 9.2 L Hematocrit 27.5 L Mean Corpuscular Volume 91.4 Mean Corpuscular Hemoglobin 30.6 Mean Corpuscular Hemoglobin Concent 33.5 Red Cell Distribution Width 15.5 H Platelet Count 226 Mean Platelet Volume 12.4 H Neutrophils % 79.0 H Lymphocytes % 9.5 L Monocytes % 7.9 Eosinophils % 2.1 Basophils % 0.5 Nucleated Red Blood Cells % 0.0 Neutrophils # 8.6 H Lymphocytes # 1.0 Monocytes # 0.9 Eosinophils # 0.2 Basophils # 0.1 Nucleated Red Blood Cells # 0.0 Sodium Level 129 L Potassium Level 5.1 Chloride Level 84 L Carbon Dioxide Level 25 Anion Gap 25 H Blood Urea Nitrogen 71 H Creatinine 8.38 H Glucose Level 138 # Calcium Level 9.1 Phosphorus Level 7.9 H Magnesium Level 2.5 Bedside Glucose 129 164 Medications Medications Current Medications Diagnostic Test (Pha) (Accu-Chek) 1 ea 02 XX ; Start 01/25/17 at 02:00 Insulin Glargine (Lantus) 15 unit DAILY@08 SC Last administered on 01/25/17 08 :55; Admin Dose 15 UNIT; Start 01/25/17 at 08:00 Amlodipine Besylate (Norvasc) 10 mg DAILY PO Last administered on 01/25/17 12: 48; Admin Dose 10 MG; Start 01/24/17 at 12:30 Miscellaneous Information 1 ea NOTE XX ; Start 01/24/17 at 12:30 Glucose (Glutose) 15 gm Q15M PRN PO DECREASED GLUCOSE; Start 01/24/17 at 12:30 Glucose (Glutose) 22.5 gm Q15M PRN PO DECREASED GLUCOSE; Start 01/24/17 at 12: 30 Dextrose (D50w Syringe) 25 ml Q15M PRN IV DECREASED GLUCOSE; Start 01/24/17 at 12:30 Dextrose (D50w Syringe) 50 ml Q15M PRN IV DECREASED GLUCOSE; Start 01/24/17 at 12:30 Glucagon (Glucagen) 1 mg Q15M PRN IM DECREASED GLUCOSE; Start 01/24/17 at 12:30 Glucose (Glutose) 15 gm Q15M PRN BUCCAL DECREASED GLUCOSE; Start 01/24/17 at 12 :30 Cephalexin (Keflex) 500 mg Q8 PO Last administered on 01/25/17 14:17; Admin Dose 500 MG; Start 01/24/17 at 14:00 Losartan Potassium (Cozaar) 50 mg DAILY PO Last administered on 01/25/17 12:49 ; Admin Dose 50 MG; Start 01/24/17 at 12:30 Mirtazapine (Remeron) 7.5 mg HS PO Last administered on 01/24/17 20:27; Admin Dose 7.5 MG; Start 01/24/17 at 21:00 Cinacalcet (Sensipar) 30 mg DAILY PO Last administered on 01/25/17 08:55; Admin Dose 30 MG; Start 01/25/17 at 09:00 Labetalol HCl (Labetalol) 10 mg Q4H PRN IV SBP>160; Start 01/24/17 at 12:30 Hydromorphone HCl (Dilaudid) 1 mg Q4H PRN IV SEVERE PAIN LEVEL 7-10 Last administered on 01/24/17 17:49; Admin Dose 1 MG; Start 01/24/17 at 16:30 Acetaminophen/ Hydrocodone Bitart ([place] (5/325)) 1 tab Q4H PRN PO PAIN LEVEL 7 -10 Last administered on 01/25/17 00:16; Admin Dose 1 TAB; Start 01/24/17 at 21 :00 Famotidine (Pepcid) 20 mg DAILY PO Last administered on 01/25/17 08:55; Admin Dose 20 MG; Start 01/25/17 at 09:00 Acetaminophen/ Hydrocodone Bitart ([place] (5/325)) 2 tab Q4H PRN PO SEVERE PAIN LEVEL 7-10 Last administered on 01/25/17 14:18; Admin Dose 2 TAB; Start at 23:30 Hydralazine HCl (Apresoline) 10 mg Q4H PRN IM ELEVATED B/P Last administered on 01/25/17 05:47; Admin Dose 10 MG; Start 01/25/17 at 06:00 ROBERT OSEGUERA MD Jan 25, 2017 16:29
[2017-01-25] MEDS: MIRTAZAPINE 15 MG TAB PO SCH (20:28)
[2017-01-26] MEDS: ACCU-CHEK XX SCH (02:00)
[2017-01-26] MEDS: CEPHALEXIN 500 MG CAP PO SCH ×2 (05:21→13:15)
[2017-01-26] MEDS: HYDROCODONE/APAP (5/325) TAB PO PRN (05:21)
[2017-01-26 08:00] VITALS: BP 140/65; RESP 18
[2017-01-26] MEDS: FAMOTIDINE 20 MG TAB PO SCH (08:21)
[2017-01-26] MEDS: AMLODIPINE 10 MG TAB PO SCH (08:21)
[2017-01-26] MEDS: POLYETHYLENE GLYCOL 17 GM PACKET GTB SCH (08:21)
[2017-01-26] MEDS: CINACALCET 30 MG TAB PO SCH (08:21)
[2017-01-26] MEDS: LOSARTAN 50 MG TAB PO SCH (08:22)
[2017-01-26] MEDS: INSULIN ASPART [NOVOLOG] 3 ML PEN SC SCH ×4 (08:42→20:36)
[2017-01-26] MEDS: INSULIN GLARGINE [LANtus] 3 ML PEN SC SCH (08:45)
[2017-01-26] MEDS: GABAPENTIN 100 MG CAP PO SCH ×2 (13:14→20:37)
[2017-01-26] MEDS: HYDROCODONE/APAP (5/325) TAB GTB PRN (13:16)
[2017-01-26 14:00] VITALS: BP 117/56; RESP 18
--- NOTE | 2017-01-26 16:58 | PN ---
Date/Time of Note Date/Time of Note DATE: 01/26/17 TIME: 16:56 Assessment/Plan VTE Prophylaxis VTE Prophylaxis Intervention: heparin Lines/Catheters IV Catheter Type (from Nrsg): Saline Lock Urinary Cath still in place: No Assessment/Plan Chief Complaint/Hosp Course 71 yo female wtih DMII, ESRD on HD, s/p cholecystectomy who retunred with abdominal pain and with sounds like sciatica - Abdominal pain has resolved, now having BMs. Likley 2/2 to conspitation vs post surgical pain ESRD: Continue HD per renal Hyperphosphatemia from ESRD CKD-MB: phos binders, alkali therapy Deconditioning: - Needs referral to SNF. Ready for discharge Problems: Subjective 24 Hr Interval Summary Free Text/Dictation Seems to be feeling somewhat better today, less pain in legs, able to ambulate with PT PT evaluation recommends SNF referral at discharge Had BM, no abdmoinal pain, tolerating PO Had HD yesterday Exam/Review of Systems Vital Signs Vitals Vital Signs Date Time Temp Pulse Resp B/P Pulse Ox O2 Delivery O2 Flow Rate FiO2 01/26/17 14:00 98.3 68 18 117/56 94 01/25/17 05:42 Room Air Intake and Output 01/25/17 01/25/17 01/26/17 15:00 23:00 07:00 Intake Total 300 ml 840 ml 1000 ml Output Total 3300 ml 450 ml Balance -3000 ml 390 ml 1000 ml Exam Well appeairng in NAD RRR CTAB UE AV fisutula Euvolemic ABdomen soft nt nd Ext wihtout edema Results Result Diagram: 01/25/17 0437 01/25/17 0437 Results 24 hrs Laboratory Tests Test 01/25/17 17:36 01/25/17 20:19 01/26/17 02:45 01/26/17 08:29 Bedside Glucose 161 151 141 166 Test 01/26/17 12:30 Bedside Glucose 189 Medications Medications Current Medications Diagnostic Test (Pha) (Accu-Chek) XX ; Start 01/25/17 at 02:00 Insulin Glargine (Lantus) 15 unit DAILY@08 SC Last administered on 01/26/17 08 :45; Admin Dose 15 UNIT; Start 01/25/17 at 08:00 Amlodipine Besylate (Norvasc) 10 mg DAILY PO Last administered on 01/26/17 08: 21; Admin Dose 10 MG; Start 01/24/17 at 12:30 Miscellaneous Information 1 ea NOTE XX ; Start 01/24/17 at 12:30 Glucose (Glutose) 15 gm Q15M PRN PO DECREASED GLUCOSE; Start 01/24/17 at 12:30 Glucose (Glutose) 22.5 gm Q15M PRN PO DECREASED GLUCOSE; Start 01/24/17 at 12: 30 Dextrose (D50w Syringe) 25 ml Q15M PRN IV DECREASED GLUCOSE; Start 01/24/17 at 12:30 Dextrose (D50w Syringe) 50 ml Q15M PRN IV DECREASED GLUCOSE; Start 01/24/17 at 12:30 Glucagon (Glucagen) 1 mg Q15M PRN IM DECREASED GLUCOSE; Start 01/24/17 at 12:30 Glucose (Glutose) 15 gm Q15M PRN BUCCAL DECREASED GLUCOSE; Start 01/24/17 at 12 :30 Losartan Potassium (Cozaar) 50 mg DAILY PO Last administered on 01/26/17 08:22 ; Admin Dose 50 MG; Start 01/24/17 at 12:30 Mirtazapine (Remeron) 7.5 mg HS PO Last administered on 01/25/17 20:28; Admin Dose 7.5 MG; Start 01/24/17 at 21:00 Cinacalcet (Sensipar) 30 mg DAILY PO Last administered on 01/26/17 08:21; Admin Dose 30 MG; Start 01/25/17 at 09:00 Famotidine (Pepcid) 20 mg DAILY PO Last administered on 01/26/17 08:21; Admin Dose 20 MG; Start 01/25/17 at 09:00 Hydralazine HCl (Apresoline) 10 mg Q4H PRN IM ELEVATED B/P Last administered on 01/25/17 05:47; Admin Dose 10 MG; Start 01/25/17 at 06:00 Polyethylene Glycol (Miralax) 8.5 gm DAILY GTB Last administered on 01/26/17 08:21; Admin Dose 8.5 GM; Start 01/26/17 at 09:00 Gabapentin (Neurontin) 100 mg TID PO Last administered on 01/26/17 13:14; Admin Dose 100 MG; Start 01/26/17 at 13:00 Acetaminophen/ Hydrocodone Bitart ([place] (5/325)) 1 tab Q4H PRN GTB pain Last administered on 01/26/17t 13:16; Admin Dose 1 TAB; Start 01/26/17 at 12:30 ROBERT OSEGUERA MD Jan 26, 2017 16:58
[2017-01-26 19:00] VITALS: BP 140/64; RESP 20
[2017-01-26] MEDS: MIRTAZAPINE 15 MG TAB PO SCH (20:36)
[2017-01-27] VITALS (9 sets, daily range): BP systolic 116–144; BP diastolic 53–77; PULSE 61–90; RESP 20–22
[2017-01-27] MEDS: HYDROCODONE/APAP (5/325) TAB GTB PRN ×4 (00:58→18:00)
[2017-01-27] MEDS: ACCU-CHEK XX SCH (01:01)
[2017-01-27 06:16] LABS: CALCIUM 8.2 mg/dl (8.4-10.2); CREATININE 7.43 mg/dl (0.44-1.00); POTASSIUM 4.2 mmol/L (3.5-5.1)
[2017-01-27] MEDS: INSULIN ASPART [NOVOLOG] 3 ML PEN SC SCH ×4 (07:50→20:33)
[2017-01-27] MEDS: CINACALCET 30 MG TAB PO SCH (08:43)
[2017-01-27] MEDS: GABAPENTIN 100 MG CAP PO SCH ×3 (08:43→20:32)
[2017-01-27] MEDS: LOSARTAN 50 MG TAB PO SCH (08:44)
[2017-01-27] MEDS: FAMOTIDINE 20 MG TAB PO SCH (08:44)
[2017-01-27] MEDS: AMLODIPINE 10 MG TAB PO SCH (08:44)
[2017-01-27] MEDS: POLYETHYLENE GLYCOL 17 GM PACKET GTB SCH (08:45)
[2017-01-27] MEDS: INSULIN GLARGINE [LANtus] 3 ML PEN SC SCH (09:09)
--- NOTE | 2017-01-27 19:02 | PN ---
Date/Time of Note Date/Time of Note DATE: 01/27/17 TIME: 19:00 Assessment/Plan VTE Prophylaxis VTE Prophylaxis Intervention: heparin Lines/Catheters IV Catheter Type (from Nrsg): Saline Lock Urinary Cath still in place: No Assessment/Plan Chief Complaint/Hosp Course 71 yo female wtih DMII, ESRD on HD, s/p cholecystectomy who retunred with abdominal pain and with sounds like sciatica Post cholecystectomy pain: - Abdominal pain has resolved, now having BMs. [place]ley 2/2 to conspitation in addition to post surgical pain ESRD: Continue HD per renal Hyperphosphatemia from ESRD CKD-MB: phos binders, alkali therapy Deconditioning: - Needs referral to SNF. Ready for discharge Problems: Subjective 24 Hr Interval Summary Free Text/Dictation Pt had HD today Working with PT No change to clinical status, working to dc to [facility] Exam/Review of Systems Vital Signs Vitals Vital Signs Date Time Temp Pulse Resp B/P Pulse Ox O2 Delivery O2 Flow Rate FiO2 01/27/17 16:00 72 16 01/27/17 07:00 98.7 143/63 95 01/25/17 05:42 Room Air Intake and Output 01/26/17 01/26/17 01/27/17 15:00 23:00 07:00 Intake Total 1600 ml 450 ml Balance 1600 ml 450 ml Exam Well apperaing NAD, pleasant RRR AV fistula No edema Results Result Diagram: 01/25/17 0437 01/27/17 0440 Results 24 hrs Laboratory Tests Test 01/26/17 20:34 01/27/17 04:40 01/27/17 08:35 01/27/17 12:39 Bedside Glucose 155 137 164 Sodium Level 130 L Potassium Level 4.2 Chloride Level 84 L Carbon Dioxide Level 29 Anion Gap 21 H Blood Urea Nitrogen 49 H Creatinine 7.43 H Glucose Level 106 Calcium Level 8.2 L Test 01/27/17 18:01 Bedside Glucose 205 Medications Medications Current Medications Diagnostic Test (Pha) (Accu-Chek) 1 02 XX ; Start 01/25/17 at 02:00 Insulin Glargine (Lantus) 15 unit DAILY@08 SC Last administered on 01/27/17 09 :09; Admin Dose 15 UNIT; Start 01/25/17 at 08:00 Amlodipine Besylate (Norvasc) 10 mg DAILY PO Last administered on 01/27/17 08: 44; Admin Dose 10 MG; Start 01/24/17 at 12:30 Miscellaneous Information 1 ea NOTE XX ; Start 01/24/17 at 12:30 Glucose (Glutose) 15 gm Q15M PRN PO DECREASED GLUCOSE; Start 01/24/17 at 12:30 Glucose (Glutose) 22.5 gm Q15M PRN PO DECREASED GLUCOSE; Start 01/24/17 at 12: 30 Dextrose (D50w Syringe) 25 ml Q15M PRN IV DECREASED GLUCOSE; Start 01/24/17 at 12:30 Dextrose (D50w Syringe) 50 ml Q15M PRN IV DECREASED GLUCOSE; Start 01/24/17 at 12:30 Glucagon (Glucagen) 1 mg Q15M PRN IM DECREASED GLUCOSE; Start 01/24/17 at 12:30 Glucose (Glutose) 15 gm Q15M PRN BUCCAL DECREASED GLUCOSE; Start 01/24/17 at 12 :30 Losartan Potassium (Cozaar) 50 mg DAILY PO Last administered on 01/27/17 08:44 ; Admin Dose 50 MG; Start 01/24/17 at 12:30 Mirtazapine (Remeron) 7.5 mg HS PO Last administered on 01/26/17 20:36; Admin Dose 7.5 MG; Start 01/24/17 at 21:00 Cinacalcet (Sensipar) 30 mg DAILY PO Last administered on 01/27/17 08:43; Admin Dose 30 MG; Start 01/25/17 at 09:00 Famotidine (Pepcid) 20 mg DAILY PO Last administered on 01/27/17 08:44; Admin Dose 20 MG; Start 01/25/17 at 09:00 Hydralazine HCl (Apresoline) 10 mg Q4H PRN IM ELEVATED B/P Last administered on 01/25/17 05:47; Admin Dose 10 MG; Start 01/25/17 at 06:00 Polyethylene Glycol (Miralax) 8.5 gm DAILY GTB Last administered on 01/27/17 08:45; Admin Dose 8.5 GM; Start 01/26/17 at 09:00 Gabapentin (Neurontin) 100 mg TID PO Last administered on 01/27/17 08:43; Admin Dose 100 MG; Start 7/25/17 at 13:00 Acetaminophen/ Hydrocodone Bitart ([place] (5/325)) 1 tab Q4H PRN GTB pain Last administered on 01/27/17t 18:00; Admin Dose 1 TAB; Start 01/26/17 at 12:30 ROBERT OSEGUERA MD Jan 27, 2017 19:02
[2017-01-27] MEDS: MIRTAZAPINE 15 MG TAB PO SCH (20:32)
[2017-01-28] MEDS: ACCU-CHEK XX SCH (02:00)
[2017-01-28] MEDS: INSULIN ASPART [NOVOLOG] 3 ML PEN SC SCH ×4 (07:50→21:04)
[2017-01-28 08:31] VITALS: BP 156/74; RESP 20
[2017-01-28] MEDS: GABAPENTIN 100 MG CAP PO SCH ×3 (09:08→21:03)
[2017-01-28] MEDS: LOSARTAN 50 MG TAB PO SCH (09:08)
[2017-01-28] MEDS: AMLODIPINE 10 MG TAB PO SCH (09:09)
[2017-01-28] MEDS: CINACALCET 30 MG TAB PO SCH (09:09)
[2017-01-28] MEDS: FAMOTIDINE 20 MG TAB PO SCH (09:09)
[2017-01-28] MEDS: POLYETHYLENE GLYCOL 17 GM PACKET GTB SCH (09:12)
[2017-01-28] MEDS: INSULIN GLARGINE [LANtus] 3 ML PEN SC SCH (09:12)
[2017-01-28 15:13] VITALS: BP 128/62; RESP 20
--- NOTE | 2017-01-28 15:51 | PN ---
Date/Time of Note Date/Time of Note DATE: 01/28/17 TIME: 15:51 Assessment/Plan VTE Prophylaxis VTE Prophylaxis Intervention: heparin Lines/Catheters IV Catheter Type (from Nrsg): Saline Lock Urinary Cath still in place: No Assessment/Plan Chief Complaint/Hosp Course 71 yo female wtih DMII, ESRD on HD, s/p cholecystectomy who retunred with abdominal pain and with sounds like sciatica Post cholecystectomy pain: - Abdominal pain has resolved, now having BMs. Likley 2/2 to conspitation in addition to post surgical pain ESRD: Continue HD per renal Hyperphosphatemia from ESRD CKD-MB: phos binders, alkali therapy Deconditioning: - Needs referral to SNF. Ready for discharge Problems: Subjective 24 Hr Interval Summary Free Text/Dictation Doing well Ambulating Working with PT Pain controlled Awaits [facility] placement Exam/Review of Systems Vital Signs Vitals Vital Signs Date Time Temp Pulse Resp B/P Pulse Ox O2 Delivery O2 Flow Rate FiO2 01/28/17 15:13 98.9 86 20 128/62 97 01/25/17 05:42 Room Air Intake and Output 01/27/17 01/27/17 01/28/17 15:00 23:00 07:00 Intake Total 1560 ml 550 ml Output Total 2100 ml Balance -540 ml 550 ml Results Result Diagram: 01/25/17 0437 01/27/17 0440 Results 24 hrs Laboratory Tests Test 01/27/17 18:01 01/27/17 20:31 01/28/17 08:35 01/28/17 12:52 Bedside Glucose 205 156 74 199 Medications Medications Current Medications Diagnostic Test (Pha) (Accu-Chek) 1 ea 02 XX ; Start 01/25/17 at 02:00 Insulin Glargine (Lantus) 15 unit DAILY@08 SC Last administered on 01/28/17 09 :12; Admin Dose 15 UNIT; Start 01/25/17 at 08:00 Amlodipine Besylate (Norvasc) 10 mg DAILY PO Last administered on 01/28/17 09: 09; Admin Dose 10 MG; Start 01/24/17 at 12:30 Miscellaneous Information 1 ea NOTE XX ; Start 01/24/17 at 12:30 Glucose (Glutose) 15 gm Q15M PRN PO DECREASED GLUCOSE; Start 01/24/17 at 12:30 Glucose (Glutose) 22.5 gm Q15M PRN PO DECREASED GLUCOSE; Start 01/24/17 at 12: 30 Dextrose (D50w Syringe) 25 ml Q15M PRN IV DECREASED GLUCOSE; Start 01/24/17 at 12:30 Dextrose (D50w Syringe) 50 ml Q15M PRN IV DECREASED GLUCOSE; Start 01/24/17 at 12:30 Glucagon (Glucagen) 1 mg Q15M PRN IM DECREASED GLUCOSE; Start 01/24/17 at 12:30 Glucose (Glutose) 15 gm Q15M PRN BUCCAL DECREASED GLUCOSE; Start 01/24/17 at 12 :30 Losartan Potassium (Cozaar) 50 mg DAILY PO Last administered on 01/28/17 09:08 ; Admin Dose 50 MG; Start 01/24/17 at 12:30 Mirtazapine (Remeron) 7.5 mg HS PO Last administered on 01/27/17 20:32; Admin Dose 7.5 MG; Start 01/24/17 at 21:00 Cinacalcet (Sensipar) 30 mg DAILY PO Last administered on 01/28/17 09:09; Admin Dose 30 MG; Start 01/25/17 at 09:00 Famotidine (Pepcid) 20 mg DAILY PO Last administered on 01/28/17 09:09; Admin Dose 20 MG; Start 01/25/17 at 09:00 Hydralazine HCl (Apresoline) 10 mg Q4H PRN IM ELEVATED B/P Last administered on 01/25/17 05:47; Admin Dose 10 MG; Start 01/25/17 at 06:00 Polyethylene Glycol (Miralax) 8.5 gm DAILY GTB Last administered on 01/28/17 09:12; Admin Dose 8.5 GM; Start 01/26/17 at 09:00 Gabapentin (Neurontin) 100 mg TID PO Last administered on 01/28/17 13:07; Admin Dose 100 MG; Start 01/26/17 at 13:00 Acetaminophen/ Hydrocodone Bitart ([place] (5/325)) 1 tab Q4H PRN GTB pain Last administered on 01/27/17 18:00; Admin Dose 1 TAB; Start 01/26/17 at 12:30 ROBERT OSEGUERA MD Jan 28, 2017 15:51
--- NOTE | 2017-01-28 17:06 | PDOCDIS ---
Discharge Instructions CONDITION Patient Condition: Good HOME CARE INSTRUCTIONS: Diet Instructions: Reduced Sodium ACTIVITY: Activity Restrictions: Slowly Increase Activity FOLLOW UP/APPOINTMENTS Follow-up Plan Follow up with your surgeon in coming week Continue dialysis as scheduled ROBERT OSEGUERA MD Jan 28, 2017 17:06
--- NOTE | 2017-01-28 17:08 | DS ---
Date/Time of Note Date/Time of Note DATE: 01/28/17 TIME: 17:07 Discharge Summary Admission/Discharge Info Admit Date/Time Jan 25, 2017 at 15:51 Discharge Date/Time Patient Condition: Good Consults Surgery Physical therapy Hx of Present Illness Patient is a 71-year-old female with a past medical history significant for end-stage renal disease, hypertension, diabetes mellitus, GERD, recent laparoscopic cholecystectomy with Dr. Alan, who presents to [facility] for worsening abdominal pain. Patient reports worsening abdominal pain and distention since she was discharged 3 days ago and cannot tolerate the pain. There is associated nausea, however no episodes of vomiting. Patient does not make urine. Patient has no other significant complaints then intractable abdominal pain. However it should be noted that upon entering patient's room in the ED, patient was asleep and had to be woken up and then she immediately started withering in pain. PMH: End-stage renal disease, hypertension, diabetes mellitus, GERD, recent laparoscopic cholecystectomy Social: Former smoker, denies drinking or drugs Meds: Please see med rec, however does include Lantus and short-acting insulin, amlodipine 10 mg, losartan 50 mg, lovastatin 40 mg, mirtazapine 7.5 mg, calcitriol and Sensipar Hospital Course 71 yo female wtih DMII, ESRD on HD, s/p cholecystectomy who retunred with abdominal pain and with sounds like sciatica Post cholecystectomy pain: - Abdominal pain has resolved, now having BMs. Likley 2/2 to conspitation in addition to post surgical pain ESRD: Continue HD per renal Hyperphosphatemia from ESRD CKD-MB: phos binders, alkali therapy Referrred to [facility] Home Meds Active Scripts Cinacalcet* (Sensipar*) 30 Mg Tab, 30 MG PO DAILY for 30 Days, TAB Prov:HIDALGO,PRISCILA V. PRIMER CHARGER 03/30/16 Calcitriol* (Calcitriol*) 0.25 Mcg Capsule, 0.25 MCG PO DAILY for 30 Days, CAP Prov:HIDALGO,PRISCILA V. PRIMER CHARGER 03/30/16 Losartan Potassium* (Cozaar*) 50 Mg Tablet, 50 MG PO BID for 30 Days, TAB Prov:HIDALGO,PRISCILA V. PRIMER CHARGER 03/30/16 Pantoprazole* (Pantoprazole*) 40 Mg Tablet.dr, 40 MG PO DAILY@06 for 30 Days Prov:PRISCILA HIDALGO V. PRIMER CHARGER 03/30/16 Multivit/Ca Carb/B Cmplx/Fa* (Jennifer-Black*) 1 Tab Tab, 1 TAB PO DAILY for 30 Days , TAB Prov:HIDALGOJAVON WINKLERPIO Sorto PRIMER CHARGER 03/30/16 Reported Medications Oxycodone HCl/Acetaminophen (Percocet 5-325 mg Tablet) 1 Each Tablet, 1 EACH PO Q4 Y for PAIN, TAB 01/24/17 Insulin Isophan/Regular (Humulin 70/30) 100 Units/Ml Susp, 0 SC HS, EA UNITS NOT KNOW USE SLIDING SCALE 01/24/17 Insulin Isophan/Regular (Humulin 70/30) 100 Units/Ml Susp, 0 SC AC BREAKFAST, EA UNITS NOT KNOW USE SLIDING SCALE 01/24/17 Acetaminophen* (Tylophen*) 500 Mg Capsule, 500 MG PO Q6H Y for MODERATE PAIN LEVEL 4-6, TAB 03/19/16 Lovastatin (Lovastatin) 40 Mg Tablet, 40 MG PO HS, TAB 03/19/16 Amlodipine Besylate* (Amlodipine Besylate*) 10 Mg Tablet, 10 MG PO DAILY, #30 TAB 03/19/16 Mirtazapine* (Mirtazapine*) 7.5 Mg Tablet, 7.5 MG PO HS, TAB 03/19/16 Loratadine* (Loratadine*) 10 Mg Tablet, 10 MG PO DAILY, #30 TAB 03/19/16 Discontinued Reported Medications Insulin Isophan/Regular (Humulin 70/30) 100 Units/Ml Susp, 1 UNIT SC HS, EA 03/19/16 Insulin Isophan/Regular (Humulin 70/30) 100 Units/Ml Susp, 1 UNIT SC AC BREAKFAST, EA 03/19/16 Discontinued Scripts Cephalexin* (Cephalexin*) 500 Mg Capsule, 500 MG PO Q8, #15 CAP Prov:SONJA WRIGHT 01/21/17 [Oxycodone/Acetamin (5/325)] 1 TAB TAB No Conflict Check, 1 TAB PO Q4H Y for MILD PAIN (1-3), #30 Prov:SONJA WRIGHT 01/21/17 Primary Care Provider Not On Staff Doctor Pending Labs Laboratory Tests Test 01/27/17 18:01 01/27/17 20:31 01/28/17 08:35 01/28/17 12:52 Bedside Glucose 205mg/dL (70-220) 156mg/dL (70-220) 74mg/dL (70-220) 199mg/dL (70-220) ROBERT OSEGUERA MD Jan 28, 2017 17:08
[2017-01-28 20:42] VITALS: BP 144/70; RESP 18
[2017-01-28] MEDS: MIRTAZAPINE 15 MG TAB PO SCH (21:03)
[2017-01-28] MEDS: HYDROCODONE/APAP (5/325) TAB GTB PRN (21:07)
[2017-01-28 21:58] VITALS: BP 145/69; PULSE 72; RESP 17
--- NOTE | 2017-01-29 06:50 | PN ---
DATE: 01/25/2017 SUBJECTIVE DATA: Postoperative day number 6. The patient was admitted yesterday because of abdominal pain. The CT scan is entirely unremarkable. The patient states she has little if any abdominal pain. Today's KUB showed that she is severely constipated. PHYSICAL EXAMINATION: ABDOMEN: Obese, soft, and nontender. Dialysis is in progress. LABORATORY AND DIAGNOSTIC DATA: Hematocrit is 27, with a white count of 10,900, with slight left shift with 79 polys. OBJECTIVE DATA: The patient is constipated. LABORATORY AND DIAGNOSTIC DATA: Magnesium citrate and Fleet enema. Resolution is expected. Dictated By: Donnell Alan MD /geno/terrell /Document#: [id number]
== END 2017-01-28 22:19 | DRG 947 ==
LOC: E/R 10:03 → MS1 11:28 → OBSVTOIN 01-25 15:51
PROVIDERS: ADMIT Hospitalist; ATTEND Hospitalist
PROC: 5A1D60Z (ICD-10-PCS; principal; 2017-01-25)
DX: G89.18 Other acute postprocedural pain (principal); N18.6 End stage renal disease; I12.0 Hypertensive chronic kidney disease with stage 5 chronic kidney disease or end stage renal disease; E11.9 Type 2 diabetes mellitus without complications; Z99.2 Dependence on renal dialysis; R33.9 Retention of urine, unspecified; K59.00 Constipation, unspecified; M54.30 Sciatica, unspecified side
CPT/HCPCS: 36415; 71010; 74000; 74177; 80048; 80053; 81001; 82962; 83036; 83605; 83690; 83735; 84100; 85025; 85610; 85730; 87040; 90935; 93005; 96374; 96375; 97110; 97116; 97162; 97530; G0378; J0360; J1170; J1815; J2270; J2405; J7030; Q9967